=== PATIENT | male | born 1960 | race Caucasian/White ===

== ENCOUNTER → 2016-08-14 | Outpatient (CLI) | payer MEDICARE ==
[2016-08-14 17:25] LABS: ALBUMIN 3.9 GM/DL (3.2-5.2); ALBUMIN/GLOBULIN RATIO 1.34 (1.00-1.93); ALKALINE PHOSPHATASE 91 U/L (45-117); ALT/SGPT 41 U/L (12-78); ANION GAP 7 MEQ/L (8-16); AST/SGOT 23 U/L (15-37); BILIRUBIN,TOTAL 0.6 MG/DL (0.2-1.0); BLOOD UREA NITROGEN 13 MG/DL (7-18); CALCIUM LEVEL 8.5 MG/DL (8.5-10.1); CARBON DIOXIDE LEVEL 31 MEQ/L (21-32); CHLORIDE LEVEL 102 MEQ/L (98-107); CHOLESTEROL LEVEL 160 MG/DL (<200); CREATININE FOR GFR 0.75 MG/DL (0.70-1.30); GLOMERULAR FILTRATION RATE > 60.0 (>56); GLUCOSE, FASTING 92 MG/DL (70-105); POTASSIUM SERUM 4.5 MEQ/L (3.5-5.1); SODIUM LEVEL 140 MEQ/L (136-145); TOTAL PROTEIN 6.8 GM/DL (6.4-8.2); TRIGLYCERIDES LEVEL 165 MG/DL (<150)
== END ==
LOC: M CLY 09:53
PROVIDERS: ATTEND Family Medicine
DX: I10 Essential (primary) hypertension (principal); E78.5 Hyperlipidemia, unspecified; M51.9 Unspecified thoracic, thoracolumbar and lumbosacral intervertebral disc disorder; M54.12 Radiculopathy, cervical region

== ENCOUNTER → 2016-08-14 | Outpatient (CLI) | payer MEDICARE ==
--- NOTE | 2016-08-14 12:27 | REP ---
Clinical: Radiculopathy and paresthesia. Technique: AP, lateral, flexion/extension, swimmer's, open-mouth, and bilateral oblique views. Findings: Advanced multilevel degenerative disc osteophyte complexes are noted throughout the cervical spine. Findings include osteophytosis and plate sclerosis and disc space narrowing along with hypertrophic facet changes. Swimmer's view suggests anterolisthesis at the C5-6 level. Open mouth view demonstrates normal C1-C2 articulation and odontoid process. Impression: Advanced multilevel degenerative changes without acute fracture / compression injury. Cannot exclude anterolisthesis at the C5-6 level. If the patient's symptoms persist MRI may be warranted.
== END ==
LOC: M CLY 11:05
PROVIDERS: ATTEND Family Medicine
DX: M54.12 Radiculopathy, cervical region (principal); M51.9 Unspecified thoracic, thoracolumbar and lumbosacral intervertebral disc disorder; E78.5 Hyperlipidemia, unspecified
CPT/HCPCS: 72050; 80053; 80061; 84443; 93005; G0463

== ENCOUNTER → 2016-09-24 | Outpatient (CLI) | payer MEDICARE ==
[~2016-09-24] VITALS: Ht 185.4 cm; Wt 130.6 kg
[~2016-09-24] MED LIST: LISI-538 PO; NS 1,000 ML IV SCH; PROPOFOL 200 MG/20 ML VIAL As Ordered ONE
--- NOTE | 2016-09-24 15:14 | ROOR ---
Patient Name: Robert Myers Procedure Date: 09/24/2016 2:53 PM Date of : 1960 Age: 56 Room: [facility] Gender: Male Note Status: Finalized Procedure: Colonoscopy Indications: Screening for colorectal malignant neoplasm Providers: Zhou CHASE MD Referring MD: Orion Andujar MD Requesting Provider: Medicines: Monitored Anesthesia Care Complications: No immediate complications. Procedure: Pre-Anesthesia Assessment: - The heart rate, respiratory rate, oxygen saturations, blood pressure, adequacy of pulmonary ventilation, and response to care were monitored throughout the procedure. The Colonoscope was introduced through the anus and advanced to the cecum, identified by appendiceal orifice and ileocecal valve. The colonoscopy was performed without difficulty. The patient tolerated the procedure well. The quality of the bowel preparation was fair. Findings: The perianal and digital rectal examinations were normal. (EXAM: Complete, PREP: Suboptimal) Three sessile polyps were found in the sigmoid colon. The polyps were diminutive in size. These polyps were removed with a cold snare. Resection and retrieval were complete. The exam was otherwise without abnormality. Impression: - (EXAM: Complete, PREP: Suboptimal) - Three diminutive polyps in the sigmoid colon, removed with a cold snare. Resected and retrieved. - The examination was otherwise normal. Recommendation: - Repeat colonoscopy in 1 year because the bowel preparation was suboptimal. Zhou Chase MD Zhou CHASE MD 09/24/2016 3:14:05 PM This report has been signed electronically. Number of Addenda: 0 Note Initiated On: 09/24/2016 2:53 PM Estimated Blood Loss: Estimated blood loss: none.
[2016-09-24 15:35] VITALS: BP 152/95
== END | disposition home or self-care (01) ==
LOC: M OPP 11:47
PROVIDERS: ATTEND Internal Medicine Gastroenterology
DX: Z12.11 Encounter for screening for malignant neoplasm of colon (principal); D12.5 Benign neoplasm of sigmoid colon; I10 Essential (primary) hypertension; M54.9 Dorsalgia, unspecified; G47.30 Sleep apnea, unspecified; Z88.8 Allergy status to other drugs, medicaments and biological substances; Z79.899 Other long term (current) drug therapy; Z80.3 Family history of malignant neoplasm of breast; Z80.41 Family history of malignant neoplasm of ovary

== ENCOUNTER → 2016-11-20 | Outpatient (CLI) | payer MEDICARE, OTHER ==
[~2016-11-20] MED LIST changes: -NS 1,000 ML IV SCH; -PROPOFOL 200 MG/20 ML VIAL As Ordered ONE
--- NOTE | 2016-12-03 00:54 | ECWPNPC ---
PATIENT NAME: CYRIL RUFF : 1960 GENDER: MALE VISIT DATE: 11/20/2016 DISCHARGE DATE: 11/20/16 1446 VISIT LOCKED DATE TIME: PHYSICIAN: ROBERT STANTON PHYSICIAN PAGER NO: [phone] RESOURCE: ROBERT STANTON REASON FOR APPOINTMENT 1. LOW BACK PAIN HISTORY OF PRESENT ILLNESS NEW PATIENT CONSULT: WHEN DID YOUR PAIN FIRST START? . BRIEFLY DESCRIBE HOW YOUR PAIN STARTED? . HOW DOES YOUR PAIN CHANGE WITH TIME? . DOES YOUR PAIN AWAKEN YOU FROM SLEEP? . HOW MANY HOURS OF SLEEP DO YOU NORMALLY GET? . ANY DIAGNOSTIC TESTING? . FACILITY WHERE TESTS WERE DONE? ____. PAIN TREATMENT TREATMENT YES CANCER HAVE YOU EVER HAD ANY TYPE OF CANCER?NO NO. 56 YEAR OLD MALE PATIENT WITH HISTORY OF CHRONIC LOW BACK PAIN. PATIENT DESCRIBES THE PAIN ACHING AND SHARP WITH THE PAIN COMING AND GOING WITH A CURRENT PAIN SCORE OF 2-3/10. 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 SINCE THE ACCIDENT THE PATIENT HAS HAD TWO BACK SURGERIES. PATIENT REPORTS THAT PHYSICAL THERAPY PHYSICAL THERAPY DID NOT AID THE PATIENT IN PAIN RELIEF. CURRENTLY THE PATIENT IS NOT USING ANY MEDICATION FOR PAIN MANAGEMENT AT THIS TIME. PATIENT REPORTS BEING ALLERGIC TO STEROIDS. PATIENT DENIES UNEXPLAINABLE WEIGHT LOSS, FEVER, CHILLS, NEW CHANGES ON HIS URINARY OR BOWEL CONTROL. PAIN SCREENING: PATIENT HAS A COMPLAINT OF ACUTE OR CHRONIC PAIN :YES FALL RISK SCREENING: SCREENING :NO FALLS IN THE PAST YEAR PHILLIPS INVENTORY: QUESTIONNAIRE ASSESSEDTBD SCORE VALUE CALCULATED TBD CURRENT MEDICATIONS TAKING ASPIR-81 81 MG TABLET DELAYED RELEASE 1 TABLET ORALLY ONCE A DAY TAKING LISINOPRIL 20 20 MG TABLET 1 TAB ORALLY ONCE DAILY TAKING PHENTERMINE HCL 15 MG CAPSULE 1 CAPSULE ORALLY ONCE A DAY, NOTES: PER DR. HERR TAKING TOPIRAMATE 25 MG TABLET 1 TABLET ORALLY TWICE A DAY, NOTES: PER DR. HERR MEDICATION LIST REVIEWED AND RECONCILED WITH THE PATIENT PAST MEDICAL HISTORY SLEEP APNEA DEGENERATIVE SPINE HIGH BLOOD PRESSURE OBESITY: HIGH 320 ALLERGIES STERIODS FOR INJECTION: ANAPHYLAXIS: ALLERGY SURGICAL HISTORY BACK SURGERY 1999 SHOULDER SURGERY 1988 4 TITANIUM RODS PUT IN BACK-16 BOLTS- 2009 4 TEETH PULLED BY ORAL SURGERY 2013FEBRUARY 10 FAMILY HISTORY FATHER: DIABETES, HIGH BLOOD PRESSURE MOTHER: HIGH BLOOD PRESSURE,OVARIAN CANCER,BREAST CANCER ,BRAIN TUMOR REMOVED THIS WINTER 2015 SOCIAL HISTORY GENERAL: TOBACCO USE ARE YOU A:NONSMOKER ALCOHOL SCREENING POINTS1 INTERPRETATIONNEGATIVE RECREATIONAL DRUG USE DRUG USE?NO CAFFEINE CAFFEINE USE?YES HOW OFTEN AND HOW MUCH? 6-8 CUPS PER DAY OCCUPATION: [employer]. DIET: REGULAR. EXERCISE: DAILY, WALKS. MARITAL STATUS: .. OTHERS AT HOME: FATHER, MOTHER. DRUZE [id number] [employer] LANG[employer]AGE LANGUAGES SPOKEN:MAORI EDUCATION LEVEL OF EDUCATION:COLLEGE LEARNING BARRIERS / SPECIAL NEEDS BARRIERS TO LEARNING?NO LEARNING PREFERENCES?NO PAIN CLINIC PFS, CLERGY, PUBLIC HEALTH REFERRALS PFS REFERRAL NEEDED?NO CLERGY REFERRAL NEEDED?NO PUBLIC HEALTH REFERRAL NEEDED?NO WAS THE PROVIDER NOTIFIED OF ANY PERTINENT INFO?NO PATIENT: ____. ADVANCE DIRECTIVES HEALTH CARE PROXY?NO WOULD YOU LIKE MORE INFORMATION?NO DO YOU HAVE A DNR?NO WOULD YOU LIKE MORE INFORMATION?NO LIVING WILL?NO WOULD YOU LIKE MORE INFORMATION?NO POWER OF SEXER?NO WOULD YOU LIKE MORE INFORMATION?NO SOCIAL HISTORY ____. KIRILL TONG. HOSPITALIZATION/MAJOR DIAGNOSTIC PROCEDURE NO HOSPITALIZATION HISTORY. REVIEW OF SYSTEMS CONSTITUTIONAL: ANY CHANGE IN YOUR MEDICAL CONDITION? NO . CHILLS NO . FEVER NO . INFECTION: DO YOU HAVE NEW INFECTIONS? NO . DO YOU HAVE HISTORY OF MRSA? NO . MUSCULOSKELETAL: ANY NEW PATTERNS OF PAIN OR NUMBNESS? NO . SYTEMIC LUPUS NO . GASTROENTEROLOGY: ANY NEW CHANGE IN BOWEL CONTROL? NO . BARRETTS ESOPHAGUS NO . CIRRHOSIS NO . HEPATITIS NO . LIVER FAILURE NO . ACID REFLUX NO . UNEXPLAINED WEIGHT LOSS NO . GENITOURINARY: ANY NEW CHANGE IN BLADDER CONTROL? NO . IS THERE A CHANCE YOU COULD BE ? NO . HEMATOLOGY/LYMPH: DO YOU TAKE ANY BLOOD THINNERS? (FOR EXAMPLE- COUMADIN, PLAVIX, AGGRENOX, PLATEL, PRADAXA, OR XARELTO) NO . WHEN WAS YOUR LAST DOSE? DATE: TIME: . LOW PLATELET COUNT NO . SICKLE CELL DISEASE NO . VON WILLIEBRANDS NO . FACTOR V LEIDEN NO . THALLASEMIA NO . ANEMIA NO . EASY BRUISING NO . NEUROLOGY: HAVE YOU FALLEN IN THE PAST 6 MONTHS? NO . ANY NEW EXTREMITY NUMBNESS OR WEAKNESS? NO . HEAD INJURY NO . DEMENTIA NO . CEREBRAL PALSY NO . MULTIPLE SCLEROSIS NO . DIZZINESS NO . HEADACHE NO . STROKES NO . VERTIGO NO . CARDIOLOGY: DO YOU HAVE A PACEMAKER OR DEFIBRILLATOR? NO . ANGINA NO . HEART ATTACK NO . HEART SURGERY NO . CONGESTIVE HEART FAILURE/FLUID OVERLOAD NO . CHEST PAIN NO . HIGH BLOOD PRESSURE ON MEDICATION(S) . IRREGULAR HEART BEAT NO . RESPIRATORY: HAVE YOU BEEN SICK IN THE PAST WEEK? NO . FEVER NO . FLU LIKE SYMPTOMS? NO . CPAP NO . BYPAP NO . ASTHMA NO . EMPHYSEMA NO . CHRONIC LUNG DISEASES NO . SHORTNESS OF BREATH ON EXERTION NO . DO YOU USE ANY TYPE OF TOBACCO (SMOKE, SMOKELESS, CHEW)? NO . COUGH NO . SNORING YES,USES CPAP . INTEGUMENTARY: DO YOU HAVE ANY RASHES OR OPEN SORES? NO . ALLERGIC/IMMUNO: ARE YOU ALLERGIC TO SHELLFISH OR IV DYE? NO . ANY NEW ALLERGIES? NO . PSYCHIATRIC: DO YOU HAVE THOUGHTS OF HURTING YOURSELF OR SOMEONE ELSE? NO . ARE YOU ABUSED, NEGLECTED, OR IN AN UNSAFE ENVIRONMENT? NO . ENDOCRINOLOGY: ARE YOU DIABETIC? NO . THYROID DISORDER NO . OTHER: DO YOU NEED ANY PRESCRIPTIONS? NO . IF YES, PLEASE LIST: ____ . ANY NEW PROBLEMS WITH YOUR MEDICATIONS? NO . WHEN DID YOU LAST EAT? ____ . WHEN DID YOU LAST DRINK? ____ . WHAT DID YOU LAST DRINK? ____ . NAME OF PERSON DRIVING YOU HOME? ____ . DO YOU HAVE ANY OTHER QUESTIONS OR CONCERNS NO . REVIEWED BY: PROVIDER: ROBERT STANTON MD . VITAL SIGNS WT 301.8 LBS, HT 5'10", BMI 43.30 INDEX, BP 147/70 MM HG, HR 74 /MIN, RR 16 /MIN, TEMP 97.7 F, OXYGEN SAT % 96%, NA INITIALS TL 1257, REVIEWED BY: VD. EXAMINATION : PATIENT IS ALERT O X 3 AND COOPERATIVE. TENDERNESS IN HIS LOWER BACK AND PARASPINAL MUSLCE GROUP. PATIENT ABLE TO FLEX THE BACK 35 DEGREES AND EXTEND 0 DEGREES. LIMPING FROM THE LEFT LEG. LEFT LEG WEAKER THEN THE RIGHT AT EXTENSION AND FLEXION. PENDING LUMBAR MRI. ASSESSMENTS MYALGIA - M79.1 (PRIMARY) POSTLAMINECTOMY SYNDROME, NOT ELSEWHERE CLASSIFIED - M96.1 SPONDYLOSIS WITHOUT MYELOPATHY OR RADICULOPATHY, LUMBAR REGION - M47.816 SPONDYLOSIS WITHOUT MYELOPATHY OR RADICULOPATHY, LUMBOSACRAL REGION - M47.817 TREATMENT MYALGIA NOTES: WE DISCUSSED SEVERAL ISSUES WITH MR. RUFF'S PAIN MANAGEMENT CASE. AT THIS TIME THE PATIENT STATES THAT HE DOES NOT WANT MEDICATION FOR PAIN HE CAN MANAGEMENT WITH ASPIRIN. WE DISCUSSED POSSIBLE INJECTIONS FOR THE PATIENT DUE TO HIM BEING ALLERGIC TO STEROIDS THE OPTIONS ARE LIMITED. WE DISCUSSED DOING A RADIOFREQUENCY. THE PATIENT IS AWARE THAT PRIOR HE WILL NEED TO HAVE TWO DIAGNOSTIC TESTS DONE WITH ADEQUATE RESULTS TO MOVE FORWARD WITH THE RADIOFREQUENCY. PATIENT REPORTS UNDERSTANDING OF THIS AND WILL BE BOOK FOR A DIAGNOSTIC TEST AFTER APPROVAL. INSTRUCTIONS WERE GIVEN, QUESTIONS WERE ANSWERED, PATIENT REPORTS UNDERSTANDING AND AGREES WITH THE PLAN. I, DHAVAL GOLDEN, DOCUMENTED THE ABOVE INFORMATION ACTING A SCRIBE FOR DR. STANTON. I HAVE REVIEWED THE ABOVE DOCUMENT, WRITTEN BY DHAVAL BLAKEIBBranden AND I VERIFY THAT IT IS ACCURATE. DEAR DR. CAMP:THANK YOU FOR YOUR KIND REFERRAL OF MR. RUFF. YOU WANT TO DISCUSS HER CASE WITH ME PLEASE CALL ME AT THE PAIN CENTER AT [phone]. SINCERELY,ROBERT STANTON, [facility]. PROCEDURES PN WORKMANS' COMP OPINION IN YOUR OPINION, WAS THE INCIDENT THAT THE PATIENT DESCRIBED THE COMPETENT MEDICAL CAUSE OF THIS INJURY/ILLNESS? YES ARE THE PATIENT'S COMPLAINTS CONSISTENT WITH HIS/HER HISTORY OF THE INJURY/ILLNESS? YES IS THE PATIENT'S HISTORY OF THE INJURY/ILLNESS CONSISTENT WITH YOUR OBJECTIVE FINDING? YES WHAT IS THE PERCENTAGE OF TEMPORARY IMPAIRMENT? MODERATE TO MARKED = 66.7% IS THE PATIENT WORKING? NO DOCTOR ON SITE: ROBERT MELENDEZ MD PROCEDURE CODES FA211 ESTABILISHED PATIENT [facility] FACILITY CHARGE G8427 DOC MEDS VERIFIED W/PT OR RE G8730 PAIN ASSESS POS TOOL F/U PLAN DOC DISPOSITION & COMMUNICATION FOLLOW UP LFBD AFTER APPROVAL ELECTRONICALLY SIGNED BY ROBERT STANTNO MD ON 12/02/2016 AT 07:48 PM EDT DISCLAIMER : THIS IS A VISIT SUMMARY EXTRACTED FROM THE [email or web address] CHART. IT IS NOT A COPY OF THE [email or web address] PROGRESS NOTE. STANISLAV
== END ==
LOC: M PAIN 12:40
PROVIDERS: ATTEND Anesthesiology
DX: M96.1 Postlaminectomy syndrome, not elsewhere classified (principal); M79.1 Myalgia; M47.816 Spondylosis without myelopathy or radiculopathy, lumbar region; M47.817 Spondylosis without myelopathy or radiculopathy, lumbosacral region; G47.30 Sleep apnea, unspecified; I10 Essential (primary) hypertension; E66.9 Obesity, unspecified; Z68.41 Body mass index [BMI] 40.0-44.9, adult; Z88.8 Allergy status to other drugs, medicaments and biological substances; Z79.82 Long term (current) use of aspirin; Z79.899 Other long term (current) drug therapy

== ENCOUNTER → 2017-03-21 | Outpatient (CLI) | payer OTHER, MEDICARE ==
--- NOTE | 2017-04-02 01:12 | ECWPNPC ---
PATIENT NAME: CYRIL RUFF : 1960 GENDER: MALE VISIT DATE: 03/21/2017 DISCHARGE DATE: 03/21/17 1430 VISIT LOCKED DATE TIME: PHYSICIAN: ROBERT STANTON PHYSICIAN PAGER NO: [phone] RESOURCE: ROBERT STANTON REASON FOR APPOINTMENT 1. W/C LBP HISTORY OF PRESENT ILLNESS HISTORY OF PRESENT ILLNESS: PAIN THE PATIENT DESCRIBES THE PAIN... 56 YEAR OLD MALE PATIENT WITH HISTORY OF CHRONIC LOW BACK PAIN. PATIENT DESCRIBES THE PAIN ACHING AND SHARP WITH THE PAIN COMING AND GOING WITH A CURRENT PAIN SCORE OF 02-3/10. 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 SINCE THE ACCIDENT THE PATIENT HAS HAD TWO BACK SURGERIES. PATIENT REPORTS THAT PHYSICAL THERAPY PHYSICAL THERAPY DID NOT AID THE PATIENT IN PAIN RELIEF. CURRENTLY THE PATIENT IS NOT USING ANY MEDICATION FOR PAIN MANAGEMENT AT THIS TIME. PATIENT REPORTS BEING ALLERGIC TO STEROIDS. PATIENT RECENTLY HAD GASTRIC BYPASS AND HAS LOST OVER 50 POUNDS WHICH HE STATES HAS AIDED IN RELIEF FROM THE BACK PAIN. MR. RUFF REPORTS WALKING DAILY TO STAY LIMB. PATIENT DENIES UNEXPLAINABLE WEIGHT LOSS, FEVER, CHILLS, NEW CHANGES ON HIS URINARY OR BOWEL CONTROL. FALL RISK SCREENING: SCREENING :NO FALLS IN THE PAST YEAR CURRENT MEDICATIONS NOT-TAKING PHENTERMINE HCL 15 MG CAPSULE 1 CAPSULE ORALLY ONCE A DAY, NOTES: PER DR. HERR NOT-TAKING TOPIRAMATE 25 MG TABLET 1 TABLET ORALLY TWICE A DAY, NOTES: PER DR. HERR UNKNOWN ASPIR-81 81 MG TABLET DELAYED RELEASE 1 TABLET ORALLY ONCE A DAY UNKNOWN LISINOPRIL 20 20 MG TABLET 1 TAB ORALLY ONCE DAILY UNKNOWN MULTI VITAMIN DAILY - TABLET 2 TABS ORALLY ONCE A DAY UNKNOWN CALTRATE 600+D 600-400 MG-UNIT TABLET 1 TABLET WITH FOOD ORALLY DAILY UNKNOWN VITAMIN B12 1000 MCG TABLET EXTENDED RELEASE 1 TABLET ORALLY BID MEDICATION LIST REVIEWED AND RECONCILED WITH THE PATIENT PAST MEDICAL HISTORY SLEEP APNEA DEGENERATIVE SPINE HIGH BLOOD PRESSURE OBESITY: HIGH 320 ALLERGIES STERIODS FOR INJECTION: ANAPHYLAXIS: ALLERGY SURGICAL HISTORY BACK SURGERY 1999 SHOULDER SURGERY 1988 4 TITANIUM RODS PUT IN BACK-16 BOLTS- 2008 4 TEETH PULLED BY ORAL SURGERY 2013FEBRUARY 10 GASTRIC BYPASS 2016 REVIEW OF SYSTEMS REVIEWED BY: PROVIDER: . CONSTITUTIONAL: ANY CHANGE IN YOUR MEDICAL CONDITION? NO . CHILLS NO . FEVER NO . INFECTION: DO YOU HAVE NEW INFECTIONS? NO . DO YOU HAVE HISTORY OF MRSA? NO . MUSCULOSKELETAL: ANY NEW PATTERNS OF PAIN OR NUMBNESS? NO . GASTROENTEROLOGY: ANY NEW CHANGE IN BOWEL CONTROL? NO . GENITOURINARY: ANY NEW CHANGE IN BLADDER CONTROL? NO . IS THERE A CHANCE YOU COULD BE ? NO . HEMATOLOGY/LYMPH: DO YOU TAKE ANY BLOOD THINNERS? (FOR EXAMPLE- COUMADIN, PLAVIX, AGGRENOX, PLATEL, PRADAXA, OR XARELTO) NO . WHEN WAS YOUR LAST DOSE? DATE: TIME: . NEUROLOGY: HAVE YOU FALLEN IN THE PAST 6 MONTHS? NO . ANY NEW EXTREMITY NUMBNESS OR WEAKNESS? NO . CARDIOLOGY: DO YOU HAVE A PACEMAKER OR DEFIBRILLATOR? NO . RESPIRATORY: HAVE YOU BEEN SICK IN THE PAST WEEK? NO . FEVER NO . FLU LIKE SYMPTOMS? NO . COUGH NO . INTEGUMENTARY: DO YOU HAVE ANY RASHES OR OPEN SORES? NO . ALLERGIC/IMMUNO: ARE YOU ALLERGIC TO SHELLFISH OR IV DYE? NO . ANY NEW ALLERGIES? NO . PSYCHIATRIC: DO YOU HAVE THOUGHTS OF HURTING YOURSELF OR SOMEONE ELSE? NO . ARE YOU ABUSED, NEGLECTED, OR IN AN UNSAFE ENVIRONMENT? NO . ENDOCRINOLOGY: ARE YOU DIABETIC? NO . OTHER: DO YOU NEED ANY PRESCRIPTIONS? NO . IF YES, PLEASE LIST: ____ . ANY NEW PROBLEMS WITH YOUR MEDICATIONS? NO . WHEN DID YOU LAST EAT? ____ . WHEN DID YOU LAST DRINK? ____ . WHAT DID YOU LAST DRINK? ____ . NAME OF PERSON DRIVING YOU HOME? ____ . DO YOU HAVE ANY OTHER QUESTIONS OR CONCERNS NO . VITAL SIGNS WT 273 LBS, HT 5'10", BMI 39.17 INDEX, BP 148/62 MM HG, HR 77 /MIN, RR 18 /MIN, TEMP 98.2 F, OXYGEN SAT % 97, SAFE IN ENV? (Y/N) YES, REVIEWED BY: KG. EXAMINATION : PATIENT IS ALERT O X 3 AND COOPERATIVE. TENDERNESS IN HIS LOWER BACK AND PARASPINAL MUSCLE GROUP. PATIENT ABLE TO FLEX THE BACK 35 DEGREES AND EXTEND 0 DEGREES. BANDS OF TISSUE, RESTRICTION OF MOVEMENT, AND PRESENCE OF TRIGGER POINTS IN THE LOWER BACK AREA. LIMPING FROM THE LEFT LEG. LEFT LEG WEAKER THEN THE RIGHT AT EXTENSION AND FLEXION. ASSESSMENTS POSTLAMINECTOMY SYNDROME, NOT ELSEWHERE CLASSIFIED - M96.1 (PRIMARY) SPONDYLOSIS OF LUMBAR REGION WITHOUT MYELOPATHY OR RADICULOPATHY - M47.816 SPONDYLOSIS OF LUMBOSACRAL REGION WITHOUT MYELOPATHY OR RADICULOPATHY - M47.817 TREATMENT POSTLAMINECTOMY SYNDROME, NOT ELSEWHERE CLASSIFIED NOTES: WE DISCUSSED SEVERAL ISSUES WITH MR. RUFF'S PAIN MANAGEMENT CASE. AT THIS TIME THE PATIENT WILL CONTINUE TO USE OVER THE COUNTER MEDICATION IF NEEDED. WE DISCUSSED POSSIBLE INJECTIONS THAT MAY AID THE PATIENT IN PAIN RELIEF. DUE TO THE BANDS OF TISSUE AND RESTRICTION OF MOVEMENT I WOULD LIKE TO PROCEED WITH A TRIGGER POINT INJECTION. WE DISCUSSED THE RISKS, BENENFITS, AND ALTNERATIVES OF THE INJECTION AND THE PATIENT WOULD LIKE TO PROCEED. INSTRUCTIONS WERE GIVEN, QUESTIONS WERE ANSWERED, PATIENT REPORTS UNDERSTANDING AND AGREES WITH THE PLAN. I, DHAVAL GOLDEN, DOCUMENTED THE ABOVE INFORMATION ACTING A SCRIBE FOR DR. STANTON. I HAVE REVIEWED THE ABOVE DOCUMENT, WRITTEN BY DHAVAL BANI AND I VERIFY THAT IT IS ACCURATE. OTHERS NOTES: TRIGGER POINT INJECTION MATERIAL WAS PRINTED. PROCEDURES PN WORKMANS' COMP OPINION IN YOUR OPINION, WAS THE INCIDENT THAT THE PATIENT DESCRIBED THE COMPETENT MEDICAL CAUSE OF THIS INJURY/ILLNESS? YES ARE THE PATIENT'S COMPLAINTS CONSISTENT WITH HIS/HER HISTORY OF THE INJURY/ILLNESS? YES IS THE PATIENT'S HISTORY OF THE INJURY/ILLNESS CONSISTENT WITH YOUR OBJECTIVE FINDING? YES WHAT IS THE PERCENTAGE OF TEMPORARY IMPAIRMENT? MODERATE TO MARKED = 66.7% IS THE PATIENT WORKING? NO DOCTOR ON SITE: ROBERT MELENDEZ MD PROCEDURE CODES FA211 ESTABILISHED PATIENT [facility] FACILITY CHARGE G8427 DOC MEDS VERIFIED W/PT OR RE G8730 PAIN ASSESS POS TOOL F/U PLAN DOC DISPOSITION & COMMUNICATION FOLLOW UP TPI AFTER APPROVAL ELECTRONICALLY SIGNED BY ROBERT STANTON MD ON 03/31/2017 AT 04:47 PM EDT DISCLAIMER : THIS IS A VISIT SUMMARY EXTRACTED FROM THE [employer] CHART. IT IS NOT A COPY OF THE [employer] PROGRESS NOTE. STANISLAV
== END ==
LOC: M PAIN 14:00
PROVIDERS: ATTEND Anesthesiology
DX: M96.1 Postlaminectomy syndrome, not elsewhere classified (principal); M47.816 Spondylosis without myelopathy or radiculopathy, lumbar region; M47.817 Spondylosis without myelopathy or radiculopathy, lumbosacral region; G47.30 Sleep apnea, unspecified; E78.5 Hyperlipidemia, unspecified; I10 Essential (primary) hypertension; E66.01 Morbid (severe) obesity due to excess calories; Z68.39 Body mass index [BMI] 39.0-39.9, adult; Z88.8 Allergy status to other drugs, medicaments and biological substances; Z79.899 Other long term (current) drug therapy

== ENCOUNTER → 2017-05-27 | Outpatient (CLI) | payer OTHER, MEDICARE ==
--- NOTE | 2017-06-08 23:55 | ECWPNPC ---
PATIENT NAME: CYRIL RUFF : 1960 GENDER: MALE VISIT DATE: 05/27/2017 DISCHARGE DATE: 05/27/17 1215 VISIT LOCKED DATE TIME: PHYSICIAN: ROBERT STANTON PHYSICIAN PAGER NO: [phone] RESOURCE: ROBERT STANTON REASON FOR APPOINTMENT 1. LOW BACK PAIN HISTORY OF PRESENT ILLNESS HISTORY OF PRESENT ILLNESS: PAIN THE PATIENT DESCRIBES THE PAIN... 56 YEAR OLD MALE PATIENT WITH HISTORY OF CHRONIC LOW BACK PAIN. PATIENT DESCRIBES THE PAIN ACHING AND SHARP WITH THE PAIN COMING AND GOING WITH A CURRENT PAIN SCORE OF 02-3/10. 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 SINCE THE ACCIDENT THE PATIENT HAS HAD TWO BACK SURGERIES ONE IN 2000 AND ONE IN 1988. PATIENT REPORTS THAT PHYSICAL THERAPY PHYSICAL THERAPY DID NOT AID THE PATIENT IN PAIN RELIEF. CURRENTLY THE PATIENT IS NOT USING ANY MEDICATION FOR PAIN MANAGEMENT AT THIS TIME. PATIENT REPORTS BEING ALLERGIC TO STEROIDS. PATIENT STATES THAT HE HAS BEEN IN SEVERE PAIN THE PAST YEAR EXCEPT FOR THE PAST MONTH WHERE HE ONLY HAD 4-5 DAYS OF SEVERE PAIN. MR. RUFF REPORTS WALKING DAILY TO STAY LIMBER. PATIENT DENIES UNEXPLAINABLE WEIGHT LOSS, FEVER, CHILLS, NEW CHANGES ON HIS URINARY OR BOWEL CONTROL. FALL RISK SCREENING: SCREENING :NO FALLS IN THE PAST YEAR CURRENT MEDICATIONS TAKING ASPIR-81 81 MG TABLET DELAYED RELEASE 1 TABLET ORALLY ONCE A DAY TAKING MULTI VITAMIN DAILY - TABLET 2 TABS ORALLY ONCE A DAY TAKING CALTRATE 600+D 600-400 MG-UNIT TABLET 1 TABLET WITH FOOD ORALLY DAILY TAKING VITAMIN B12 1000 MCG TABLET EXTENDED RELEASE 1 TABLET ORALLY BID NOT-TAKING PHENTERMINE HCL 15 MG CAPSULE 1 CAPSULE ORALLY ONCE A DAY, NOTES: PER DR. HERR NOT-TAKING TOPIRAMATE 25 MG TABLET 1 TABLET ORALLY TWICE A DAY, NOTES: PER DR. HERR NOT-TAKING LISINOPRIL 20 20 MG TABLET 1 TAB ORALLY ONCE DAILY MEDICATION LIST REVIEWED AND RECONCILED WITH THE PATIENT PAST MEDICAL HISTORY SLEEP APNEA DEGENERATIVE SPINE HIGH BLOOD PRESSURE OBESITY: HIGH 320 ALLERGIES STERIODS FOR INJECTION: ANAPHYLAXIS: ALLERGY SURGICAL HISTORY BACK SURGERY 1999 SHOULDER SURGERY 1988 4 TITANIUM RODS PUT IN BACK-16 BOLTS- 2008 4 TEETH PULLED BY ORAL SURGERY 2013FEBRUARY 10 GASTRIC BYPASS 2016 SOCIAL HISTORY GENERAL: TOBACCO USE ARE YOU A:NONSMOKER NEVER SMOKER QUIT 2007 ADDITIONAL FINDINGS: TOBACCO USER NO ADDITIONAL FINDINGS: TOBACCO NON-USERCURRENT NON-SMOKER VAPORNO E-CIGARETTENO LUNG CANCER SCREENING SMOKING STATUS:FORMER SMOKER IS THE PATIENT BETWEEN THE AGE OF 54 AND 76?YES HAVE YOU QUIT SMOKING WITHIN THE PAST 15 YEARS?YES HAS THE PATIENT EVER BEEN DIAGNOSED WITH LUNG CANCER?NO BMI CARE GOAL FOLLOW-UP ABOVE NORMAL BMI FOLLOW-UPDIETARY MANAGEMENT EDUCATION, GUIDANCE, AND COUNSELING ALCOHOL SCREENING DID YOU HAVE A DRINK CONTAINING ALCOHOL IN THE PAST YEAR?YES HOW OFTEN DID YOU HAVE SIX OR MORE DRINKS ON ONE OCCASION IN THE PAST YEAR?NEVER (0 POINTS) HOW MANY DRINKS DID YOU HAVE ON A TYPICAL DAY WHEN YOU WERE DRINKING IN THE PAST YEAR?1 OR 2 (0 POINTS) HOW OFTEN DID YOU HAVE A DRINK CONTAINING ALCOHOL IN THE PAST YEAR?MONTHLY OR LESS (1 POINT) POINTS1 INTERPRETATIONNEGATIVE RECREATIONAL DRUG USE DRUG USE?NO CAFFEINE CAFFEINE USE?NO SEXUAL HX HAD SEX IN THE LAST 12 MONTHS (VAGINAL, ORAL, OR ANAL)?YES WITHWOMEN ONLY USE PROTECTION?YES HOW OFTEN?ALL OF THE TIME HAVE YOU EVER HAD AN STD?NO HIV / HEP-C SCREENING HIV TEST OFFERED TO PATIENT:YES DATE OFFERED:02/12/2017 TEST ACCEPTED:NO HEP-C TEST OFFERED TO PATIENT:YES DATE OFFERED:02/12/2017 REASON:PATIENT DECLINED TEST ACCEPTED:NO REASON:PATIENT DECLINED OCCUPATION: [employer]. DIET: REGULAR. EXERCISE: DAILY, WALKS. MARITAL STATUS: .. OTHERS AT HOME: FATHER, MOTHER. 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 [id number] ANABAPTISM LANGUAGE LANGUAGES SPOKEN:BERMUDIAN EDUCATION LEVEL OF EDUCATION:COLLEGE LEARNING BARRIERS / SPECIAL NEEDS CHANGE FROM LAST VISIT?NO 02/12/2017 BARRIERS TO LEARNING?NO HEARING IMPAIRED?NO VISION IMPAIRED?YES CHEATERS COGNITIVELY IMPAIRED?NO READINESS TO LEARN?YES LEARNING PREFERENCES?NO LEARNING CAPABILITIES PRESENT?YES EMOTIONAL BARRIERS?NO SPECIAL DEVICES?NO MOVER HELPER NEEDED?NO PAIN CLINIC PFS, CLERGY, PUBLIC HEALTH REFERRALS PFS REFERRAL NEEDED?NO CLERGY REFERRAL NEEDED?NO PUBLIC HEALTH REFERRAL NEEDED?NO WAS THE PROVIDER NOTIFIED OF ANY PERTINENT INFO?NO HAS THE PATIENT BEEN EDUCATED REGARDING HIS/HER PLAN OF CARE?YES HAS THE PATIENT BEEN EDUCATED REGARDING PAIN, THE RISK FOR PAIN, THE IMPORTANCE OF EFFECTIVE PAIN MANAGEMENT, AND THE PAIN ASSESSMENT PROCESS?YES PATIENT: ____. ADVANCE DIRECTIVES HEALTH CARE PROXY?YES NAME OF HCPFILL OUT FREE FORM NOTES SECTION CYRIL ELZBIETA JOHNSON. /SUZE SOLANO CONTACT # FOR HCPFILL OUT FREE FORM NOTES SECTION [phone]/ [phone] DO YOU HAVE A COPY WITH YOU?NO WILL BRING IN COPY 02/12/2017 POWER OF INSURANCE PLAN SPECIALIST?NO DO YOU HAVE A DNR?NO WOULD YOU LIKE MORE INFORMATION?NO LIVING WILL?NO WOULD YOU LIKE MORE INFORMATION?NO WOULD YOU LIKE MORE INFORMATION?NO SOCIAL HISTORY ____. DOMESTIC VIOLENCE DO YOU FEEL SAFE IN YOUR ENVIRONMENT?YES HOSPITALIZATION/MAJOR DIAGNOSTIC PROCEDURE NO HOSPITALIZATION HISTORY. REVIEW OF SYSTEMS REVIEWED BY: PROVIDER: ROBERT STANTON MD . CONSTITUTIONAL: ANY CHANGE IN YOUR MEDICAL CONDITION? NO . CHILLS NO . FEVER NO . INFECTION: DO YOU HAVE NEW INFECTIONS? NO . DO YOU HAVE HISTORY OF MRSA? NO . MUSCULOSKELETAL: ANY NEW PATTERNS OF PAIN OR NUMBNESS? NO . GASTROENTEROLOGY: ANY NEW CHANGE IN BOWEL CONTROL? NO . GENITOURINARY: ANY NEW CHANGE IN BLADDER CONTROL? NO . IS THERE A CHANCE YOU COULD BE ? NO . HEMATOLOGY/LYMPH: DO YOU TAKE ANY BLOOD THINNERS? (FOR EXAMPLE- COUMADIN, PLAVIX, AGGRENOX, PLATEL, PRADAXA, OR XARELTO) NO . WHEN WAS YOUR LAST DOSE? DATE: TIME: . NEUROLOGY: HAVE YOU FALLEN IN THE PAST 6 MONTHS? NO . ANY NEW EXTREMITY NUMBNESS OR WEAKNESS? NO . CARDIOLOGY: DO YOU HAVE A PACEMAKER OR DEFIBRILLATOR? NO . RESPIRATORY: HAVE YOU BEEN SICK IN THE PAST WEEK? NO . FEVER NO . FLU LIKE SYMPTOMS? NO . COUGH NO . INTEGUMENTARY: DO YOU HAVE ANY RASHES OR OPEN SORES? NO . ALLERGIC/IMMUNO: ARE YOU ALLERGIC TO SHELLFISH OR IV DYE? NO . ANY NEW ALLERGIES? NO . PSYCHIATRIC: DO YOU HAVE THOUGHTS OF HURTING YOURSELF OR SOMEONE ELSE? NO . ARE YOU ABUSED, NEGLECTED, OR IN AN UNSAFE ENVIRONMENT? NO . ENDOCRINOLOGY: ARE YOU DIABETIC? NO . OTHER: DO YOU NEED ANY PRESCRIPTIONS? NO . IF YES, PLEASE LIST: ____ . ANY NEW PROBLEMS WITH YOUR MEDICATIONS? NO . WHEN DID YOU LAST EAT? ____ . WHEN DID YOU LAST DRINK? ____ . WHAT DID YOU LAST DRINK? ____ . NAME OF PERSON DRIVING YOU HOME? ____ . DO YOU HAVE ANY OTHER QUESTIONS OR CONCERNS NO . VITAL SIGNS WT 275.0 LBS, HT 70", BMI 39.45 INDEX, BP 135/72 MM HG, HR 56 /MIN, RR 18 /MIN, TEMP 97.2 F, OXYGEN SAT % 96%, [place]ITIALS TL 0954, REVIEWED BY: ZAC. EXAMINATION : PATIENT IS ALERT O X 3 AND COOPERATIVE. TENDERNESS IN HIS LOWER BACK AND PARASPINAL MUSCLE GROUP. PATIENT ABLE TO FLEX THE BACK 35 DEGREES AND EXTEND 0 DEGREES. BANDS OF TISSUE, RESTRICTION OF MOVEMENT, AND PRESENCE OF TRIGGER POINTS IN THE LOWER BACK AREA. LIMPING FROM THE LEFT LEG. LEFT LEG WEAKER THEN THE RIGHT AT EXTENSION AND FLEXION. ASSESSMENTS POSTLAMINECTOMY SYNDROME, NOT ELSEWHERE CLASSIFIED - M96.1 (PRIMARY) MYALGIA - M79.1 TREATMENT POSTLAMINECTOMY SYNDROME, NOT ELSEWHERE CLASSIFIED NOTES: WE DISCUSSED SEVERAL ISSUES WITH MR. RUFF'S PAIN MANAGEMENT CASE. AT THIS TIME THE PATIENT WILL CONTINUE WITH THE SAME MEDICATION REGIME. I WOULD LIKE THE PATIENT TO START USING EXTRA STRENGTH TYLENOL DUE TO NOT BEING ABLE TO USE NSAID WOULD LIKE TO VIEW THE MRI THAT DR. STEWART HAS RECEIVED FOR THE LOWER BACK BEFORE ORDERING ANOTHER STUDY. AT THIS TIME THE PATIENT IS DOING VERY WELL AND DOES NOT NEED TO MOVE FORWARD WITH INTERVENTIONS AT THIS TIME. HOWEVER, WE DISCUSSED IF THE PATIENT HAS SEVERE PAIN TO MOVE FORWARD WITH TRIGGER POINT INJECTIONS WITHOUT STEROIDS. PATIENT WILL FOLLOW UP IN 2 MONTHS BUT WAS ADVISED TO CALL IF THE PAIN SIGNIFICANTLY INCREASES. INSTRUCTIONS WERE GIVEN, QUESTIONS WERE ANSWERED, PATIENT REPORTS UNDERSTANDING AND AGREES WITH THE PLAN. I, DHAVAL GOLDEN, DOCUMENTED THE ABOVE INFORMATION ACTING A SCRIBE FOR DR. STANTON. I HAVE REVIEWED THE ABOVE DOCUMENT, WRITTEN BY DHAVAL BAIN AND I VERIFY THAT IT IS ACCURATE. PROCEDURES PN WORKMANS' COMP OPINION IN YOUR OPINION, WAS THE INCIDENT THAT THE PATIENT DESCRIBED THE COMPETENT MEDICAL CAUSE OF THIS INJURY/ILLNESS? YES ARE THE PATIENT'S COMPLAINTS CONSISTENT WITH HIS/HER HISTORY OF THE INJURY/ILLNESS? YES IS THE PATIENT'S HISTORY OF THE INJURY/ILLNESS CONSISTENT WITH YOUR OBJECTIVE FINDING? YES WHAT IS THE PERCENTAGE OF TEMPORARY IMPAIRMENT? MODERATE TO MARKED = 66.7% IS THE PATIENT WORKING? NO DOCTOR ON SITE: ROBERT MELENDEZ MD PROCEDURE CODES FA211 ESTABILISHED PATIENT [facility] FACILITY CHARGE G8427 DOC MEDS VERIFIED W/PT OR RE G8730 PAIN ASSESS POS TOOL F/U PLAN DOC DISPOSITION & COMMUNICATION FOLLOW UP 2 MONTHS ELECTRONICALLY SIGNED BY ROBERT STANTON MD ON 06/08/2017 AT 06:24 PM EST DISCLAIMER : THIS IS A VISIT SUMMARY EXTRACTED FROM THE [employer] CHART. IT IS NOT A COPY OF THE [employer] PROGRESS NOTE. STANISLAV
== END ==
LOC: M PAIN 09:45
PROVIDERS: ATTEND Anesthesiology
DX: M96.1 Postlaminectomy syndrome, not elsewhere classified (principal); M79.1 Myalgia; G89.29 Other chronic pain; G47.30 Sleep apnea, unspecified; E66.9 Obesity, unspecified; Z79.82 Long term (current) use of aspirin; R03.0 Elevated blood-pressure reading, without diagnosis of hypertension; Z87.891 Personal history of nicotine dependence; Z88.8 Allergy status to other drugs, medicaments and biological substances; Z68.39 Body mass index [BMI] 39.0-39.9, adult

== ENCOUNTER → 2017-06-19 | Outpatient (REF) | payer MEDICARE ==
[2017-06-19 17:50] LABS: VITAMIN B12 LEVEL 1291 PG/ML (247-911)
[2017-06-19 17:52] LABS: ALBUMIN 4.2 GM/DL (3.2-5.2); ALBUMIN/GLOBULIN RATIO 1.35 (1.00-1.93); ALKALINE PHOSPHATASE 111 U/L (45-117); ALT/SGPT 50 U/L (12-78); ANION GAP 6 MEQ/L (8-16); AST/SGOT 26 U/L (7-37); BILIRUBIN,TOTAL 0.4 MG/DL (0.2-1.0); BLOOD UREA NITROGEN 17 MG/DL (7-18); CALCIUM LEVEL 8.8 MG/DL (8.5-10.1); CARBON DIOXIDE LEVEL 31 MEQ/L (21-32); CHLORIDE LEVEL 103 MEQ/L (98-107); CREATININE FOR GFR 0.62 MG/DL (0.70-1.30); FREE T4 0.82 NG/DL (0.76-1.46); GLOMERULAR FILTRATION RATE > 60.0 (>56); GLUCOSE, FASTING 90 MG/DL (70-105); MAGNESIUM LEVEL 2.2 MG/DL (1.8-2.4); POTASSIUM SERUM 4.8 MEQ/L (3.5-5.1); SODIUM LEVEL 140 MEQ/L (136-145); TOTAL PROTEIN 7.3 GM/DL (6.4-8.2)
[2017-06-19 18:46] LABS: MEAN CORPUSCULAR HEMOGLOBIN 30.6 pg (27.0-33.0); MEAN CORPUSCULAR HGB CONC 32.5 g/dl (32.0-36.5); PLATELET COUNT, AUTOMATED 286 10^3/uL (150-450); RED CELL DISTRIBUTION WIDTH 12.1 % (11.5-14.5)
== END ==
LOC: M SFHCCLAY 09:59
PROVIDERS: ATTEND Family Medicine
DX: G56.03 Carpal tunnel syndrome, bilateral upper limbs (principal); Z98.84 Bariatric surgery status

== ENCOUNTER → 2017-06-19 | Outpatient (REF) | payer MEDICARE ==
[2017-06-19 17:44] LABS: ALBUMIN 4.2 GM/DL (3.2-5.2); ALBUMIN/GLOBULIN RATIO 1.24 (1.00-1.93); ALKALINE PHOSPHATASE 112 U/L (45-117); ALT/SGPT 52 U/L (12-78); ANION GAP 8 MEQ/L (8-16); AST/SGOT 26 U/L (7-37); BILIRUBIN,TOTAL 0.4 MG/DL (0.2-1.0); BLOOD UREA NITROGEN 17 MG/DL (7-18); CALCIUM LEVEL 8.8 MG/DL (8.5-10.1); CARBON DIOXIDE LEVEL 29 MEQ/L (21-32); CHLORIDE LEVEL 103 MEQ/L (98-107); CREATININE FOR GFR 0.63 MG/DL (0.70-1.30); FERRITIN 126 NG/ML (26-388); GLOMERULAR FILTRATION RATE > 60.0 (>56); GLUCOSE, FASTING 89 MG/DL (70-105); MAGNESIUM LEVEL 2.2 MG/DL (1.8-2.4); PERCENT SATURATION 34.4 % (19.7-50.0); POTASSIUM SERUM 4.6 MEQ/L (3.5-5.1); SODIUM LEVEL 140 MEQ/L (136-145); TOTAL IRON BINDING CAPACITY 369 UG/DL (250-450); TOTAL PROTEIN 7.6 GM/DL (6.4-8.2)
[2017-06-19 17:47] LABS: ESTIMATED AVERAGE GLUCOSE 120 MG/DL (60-110)
[2017-06-19 17:50] LABS: VITAMIN B12 LEVEL 1238 PG/ML (247-911)
[2017-06-19 18:46] LABS: BASO % 0.6 % (0.0-1.0); EOS # 0.2 10^3/uL (0.0-0.50); EOS % 3.2 % (0.0-3.0); IMMATURE GRANULOCYTE % 0.3 % (0-0); LYMPH % 29.2 % (24.0-44.0); MEAN CORPUSCULAR HEMOGLOBIN 30.1 pg (27.0-33.0); MEAN CORPUSCULAR HGB CONC 32.4 g/dl (32.0-36.5); MONO # 0.5 10^3/uL (0.0-0.8); MONO % 6.9 % (0.0-5.0); NEUTROPHILS # 4.1 10^3/uL (1.8-7.7); NEUTROPHILS % 59.8 % (36.0-66.0); PLATELET COUNT, AUTOMATED 293 10^3/uL (150-450); RED CELL DISTRIBUTION WIDTH 12.2 % (11.5-14.5); WHITE BLOOD COUNT 6.8 10^3/uL (4.0-10.0)
[2017-06-20 11:01] LABS: PRETREATED FOLATE FOR RBCFOL 11.9 NG/ML
== END ==
LOC: M LABDRAWC 16:42
DX: K91.2 Postsurgical malabsorption, not elsewhere classified (principal); Z98.84 Bariatric surgery status; E55.9 Vitamin D deficiency, unspecified
CPT/HCPCS: 83550

== ENCOUNTER → 2017-07-15 | Outpatient (CLI) | payer MEDICARE ==
[2017-07-15 17:41] LABS: C REACTIVE PROTEIN QUANTITATIV < 0.30 MG/DL (0.00-0.30)
[2017-07-15 17:41] LABS: RHEUMATOID FACTOR QUANT < 10.0 IU/ML (0-15.0)
[2017-07-15 20:03] LABS: ERYTHROCYTE SEDIMENTATION RATE 10 mm/hr (0-20)
[2017-07-22 00:07] LABS: ANTINUCLEAR ANTIBODIES DIRECT Negative (Negative); HLA-B27 Negative (.); Lyme Disease IgG/IgM Antibodie <0.91 ISR (0.00-0.90); Lyme Disease IgM Ab Quantitati <0.80 index (0.00-0.79)
== END ==
LOC: M WUC 12:42
DX: G56.03 Carpal tunnel syndrome, bilateral upper limbs (principal)
CPT/HCPCS: 86140

== ENCOUNTER → 2017-08-27 | Outpatient (CLI) | payer OTHER, MEDICARE | LOC: M PAIN 09:15 | DX: M96.1 Postlaminectomy syndrome, not elsewhere classified (principal); M54.17 Radiculopathy, lumbosacral region; Z79.82 Long term (current) use of aspirin; Z88.8 Allergy status to other drugs, medicaments and biological substances; Z98.84 Bariatric surgery status | CPT/HCPCS: G0463 ==

== ENCOUNTER → 2017-11-05 | Outpatient (REF) | payer MEDICARE | LOC: M LAB REF 10:22 | DX: R19.8 Other specified symptoms and signs involving the digestive system and abdomen (principal) | CPT/HCPCS: 87507 ==

== ENCOUNTER 2017-11-07 08:01 | Day surgery (SDC) | payer MEDICARE ==
[2017-11-07] MEDS ORDERED: PROPOFOL 200 MG/20 ML VIAL As Ordered ×2 (09:06)
[2017-11-07] MEDS ORDERED: LIDOCAINE 2% INJ 100 MG/5 ML SDV (FOR ANES.) As Ordered (09:06)
[2017-11-07] MEDS ORDERED: NS 1,000 ML IV (09:15)
== END 2017-11-07 10:19 | disposition home or self-care (01) ==
LOC: M OPP 08:01
DX: Z12.11 Encounter for screening for malignant neoplasm of colon (principal); Z86.010 Personal history of colon polyps; D12.3 Benign neoplasm of transverse colon; K64.8 Other hemorrhoids; Z86.79 Personal history of other diseases of the circulatory system; M54.9 Dorsalgia, unspecified; G47.30 Sleep apnea, unspecified; Z98.1 Arthrodesis status; Z98.84 Bariatric surgery status; Z88.8 Allergy status to other drugs, medicaments and biological substances; Z79.82 Long term (current) use of aspirin; Z80.3 Family history of malignant neoplasm of breast; Z80.41 Family history of malignant neoplasm of ovary
CPT/HCPCS: 45385

== ENCOUNTER → 2017-11-27 | Outpatient (CLI) | payer OTHER | LOC: M PAIN 09:00 | DX: M96.1 Postlaminectomy syndrome, not elsewhere classified (principal); M54.17 Radiculopathy, lumbosacral region; I10 Essential (primary) hypertension; G47.30 Sleep apnea, unspecified; E66.01 Morbid (severe) obesity due to excess calories; Z68.41 Body mass index [BMI] 40.0-44.9, adult; Z79.82 Long term (current) use of aspirin; Z79.899 Other long term (current) drug therapy; Z88.8 Allergy status to other drugs, medicaments and biological substances; Z87.891 Personal history of nicotine dependence; Z98.84 Bariatric surgery status | CPT/HCPCS: G0463 ==

== ENCOUNTER → 2017-12-29 | Outpatient (CLI) | payer MEDICARE | LOC: M RAD 07:51 | DX: R10.9 Unspecified abdominal pain (principal) | CPT/HCPCS: 76705 ==

== ENCOUNTER → 2018-03-27 | Outpatient (CLI) | payer OTHER, MEDICARE | LOC: M PAIN 09:00 | DX: M96.1 Postlaminectomy syndrome, not elsewhere classified (principal); M54.17 Radiculopathy, lumbosacral region; G47.30 Sleep apnea, unspecified; E66.9 Obesity, unspecified; Z98.84 Bariatric surgery status; Z68.41 Body mass index [BMI] 40.0-44.9, adult; Z87.891 Personal history of nicotine dependence; Z79.82 Long term (current) use of aspirin; Z79.899 Other long term (current) drug therapy; Z88.8 Allergy status to other drugs, medicaments and biological substances | CPT/HCPCS: G0463 ==

== ENCOUNTER → 2018-06-26 | Outpatient (CLI) | payer OTHER, MEDICARE ==
[~2018-06-26] MED LIST changes: +ASPI1TAB PO; +CALCTAB63 PO; +MULTCAP11 PO; +VITA500T3 PO
== END ==
LOC: M PAIN 13:15
PROVIDERS: ATTEND Anesthesiology
DX: Z53.29 Procedure and treatment not carried out because of patient's decision for other reasons (principal)

== ENCOUNTER → 2018-07-27 | Outpatient (CLI) | payer OTHER ==
--- NOTE | 2018-08-08 23:39 | ECWPNPC ---
PATIENT NAME: CYRIL RUFF : 1960 GENDER: MALE VISIT DATE: 07/27/2018 DISCHARGE DATE: 07/27/18 1004 VISIT LOCKED DATE TIME: PHYSICIAN: ROBERT STANTON MD PHYSICIAN PAGER NO: [phone] RESOURCE: ROBERT STANTON MD REASON FOR APPOINTMENT 1. W/C BACK PAIN HISTORY OF PRESENT ILLNESS HISTORY OF PRESENT ILLNESS: PAIN THE PATIENT DESCRIBES THE PAIN... 58 YEAR OLD MALE PATIENT WITH A HISTORY OF CHRONIC LOW BACK PAIN. THE PATIENT DESCRIBES THE PAIN ACHING, SHARP, AND STABBING WITH A PAIN SCORE OF 1-5/10 DEPENDING ON PHYSICAL ACTIVITY. 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 THE PATIENT SAYS THAT THE PAIN STARTS IN HIS LOW BACK AREA AND RADIATES DOWN INTO HIS LEFT LEG WITH SOME NUMBNESS. PATIENT DENIES UNEXPLAINABLE WEIGHT LOSS, FEVER, CHILLS, NEW CHANGES ON HIS URINARY OR BOWEL CONTROL. FALL RISK SCREENING: SCREENING :NO FALLS IN THE PAST YEAR CURRENT MEDICATIONS TAKING VITAMIN C 500 MG CAPSULE ORALLY TAKING VITAMIN D TAKING VITAMIN B12 1000 MCG TABLET EXTENDED RELEASE 2 TABLET ORALLY DAILY TAKING CALTRATE 600+D 600-400 MG-UNIT TABLET 1 TABLET WITH FOOD ORALLY DAILY TAKING MULTI VITAMIN DAILY - TABLET 2 TABS ORALLY ONCE A DAY TAKING ASPIR-81 81 MG TABLET DELAYED RELEASE 1 TABLET ORALLY ONCE A DAY MEDICATION LIST REVIEWED AND RECONCILED WITH THE PATIENT PAST MEDICAL HISTORY SLEEP APNEA DEGENERATIVE SPINE HIGH BLOOD PRESSURE OBESITY: HIGH 320 GASTRIC BYPASS 12/2016 ALLERGIES STERIODS FOR INJECTION: ANAPHYLAXIS: ALLERGY SURGICAL HISTORY BACK SURGERY 1999 SHOULDER SURGERY 1988 4 TITANIUM RODS PUT IN BACK-16 BOLTS- AFTER ON THE JOB INJURY. CONTINUES F/U WITH DR. STANTON 2008 4 TEETH PULLED BY ORAL SURGERY 2013FEBRUARY 10 GASTRIC BYPASS 2016 FAMILY HISTORY FATHER: ALIVE 83 YRS, DIABETES, HIGH BLOOD PRESSURE, CHRONIC BRONCHITIS MOTHER: ALIVE 80 YRS, HIGH BLOOD PRESSURE,OVARIAN CANCER,BREAST CANCER ,BRAIN TUMOR REMOVED THIS WINTER 2015 SOCIAL HISTORY GENERAL: TOBACCO USE ARE YOU A:FORMER SMOKER NEVER SMOKER QUIT 2007 ADDITIONAL FINDINGS: TOBACCO USER NO ADDITIONAL FINDINGS: TOBACCO NON-USERCURRENT NON-SMOKER VAPORNO E-CIGARETTENO LUNG CANCER SCREENING SMOKING STATUS:FORMER SMOKER IS THE PATIENT BETWEEN THE AGE OF 54 AND 76?YES HAVE YOU QUIT SMOKING WITHIN THE PAST 15 YEARS?YES HAS THE PATIENT EVER BEEN DIAGNOSED WITH LUNG CANCER?NO BMI CARE GOAL FOLLOW-UP ABOVE NORMAL BMI FOLLOW-UPDIETARY MANAGEMENT EDUCATION, GUIDANCE, AND COUNSELING ALCOHOL SCREENING DID YOU HAVE A DRINK CONTAINING ALCOHOL IN THE PAST YEAR?YES HOW OFTEN DID YOU HAVE A DRINK CONTAINING ALCOHOL IN THE PAST YEAR?NEVER (0 POINTS) POINTS0 INTERPRETATIONNEGATIVE RECREATIONAL DRUG USE DRUG USE?NO CAFFEINE CAFFEINE USE?YES HOW OFTEN AND HOW MUCH? 6-8 CUPS COFFEE DAILY SEXUAL HX HAD SEX IN THE LAST 12 MONTHS (VAGINAL, ORAL, OR ANAL)?YES WITHWOMEN ONLY USE PROTECTION?YES HOW OFTEN?ALL OF THE TIME HAVE YOU EVER HAD AN STD?NO HIV / HEP-C SCREENING HIV TEST OFFERED TO PATIENT:YES DATE OFFERED:12/18/2017 TEST ACCEPTED:NO HEP-C TEST OFFERED TO PATIENT:YES DATE OFFERED:12/18/2017 REASON:PATIENT DECLINED TEST ACCEPTED:NO REASON:PATIENT DECLINED BROCHURE PROVIDED TO PATIENTNO BAPTISM [id number] SABIANISM LANGUAGE LANGUAGES SPOKEN:BOTSWANAN EDUCATION LEVEL OF EDUCATION:COLLEGE LEARNING BARRIERS / SPECIAL NEEDS CHANGE FROM LAST VISIT?NO 06/30/2018 BARRIERS TO LEARNING?NO HEARING IMPAIRED?NO VISION IMPAIRED?YES CHEATERS COGNITIVELY IMPAIRED?NO READINESS TO LEARN?YES LEARNING PREFERENCES?NO LEARNING CAPABILITIES PRESENT?YES EMOTIONAL BARRIERS?NO SPECIAL DEVICES?NO SCREEN VENT BINDER NEEDED?NO DOMESTIC VIOLENCE DO YOU FEEL SAFE IN YOUR ENVIRONMENT?YES OCCUPATION: RETIRED. DIET: REGULAR. EXERCISE: DAILY, WALKS. MARITAL STATUS: .. OTHERS AT HOME: FATHER, MOTHER. PAIN CLINIC PFS, CLERGY, PUBLIC HEALTH REFERRALS PFS REFERRAL NEEDED?NO CLERGY REFERRAL NEEDED?NO PUBLIC HEALTH REFERRAL NEEDED?NO WAS THE PROVIDER NOTIFIED OF ANY PERTINENT INFO?NO HAS THE PATIENT BEEN EDUCATED REGARDING HIS/HER PLAN OF CARE?YES HAS THE PATIENT BEEN EDUCATED REGARDING PAIN, THE RISK FOR PAIN, THE IMPORTANCE OF EFFECTIVE PAIN MANAGEMENT, AND THE PAIN ASSESSMENT PROCESS?YES ADVANCE DIRECTIVE ADVANCE DIRECTIVE DISCUSSED WITH PATIENT:YES HCP - CYRIL JOHNSON (FATHER) & DEYVI (MOTHER) REVIEWED WITH PATIENT 07/27/18 3668 JS. HOSPITALIZATION/MAJOR DIAGNOSTIC PROCEDURE SURGERY REVIEW OF SYSTEMS REVIEWED BY: PROVIDER: ROBERT STANTON MD . CONSTITUTIONAL: ANY CHANGE IN YOUR MEDICAL CONDITION? NO . CHILLS NO . FEVER NO . INFECTION: DO YOU HAVE NEW INFECTIONS? NO . DO YOU HAVE HISTORY OF MRSA? NO . MUSCULOSKELETAL: ANY NEW PATTERNS OF PAIN OR NUMBNESS? NO . GASTROENTEROLOGY: ANY NEW CHANGE IN BOWEL CONTROL? NO . GENITOURINARY: ANY NEW CHANGE IN BLADDER CONTROL? NO . IS THERE A CHANCE YOU COULD BE ? NO . HEMATOLOGY/LYMPH: DO YOU TAKE ANY BLOOD THINNERS? (FOR EXAMPLE- COUMADIN, PLAVIX, AGGRENOX, PLATEL, PRADAXA, OR XARELTO) NO . WHEN WAS YOUR LAST DOSE? DATE: TIME: . NEUROLOGY: HAVE YOU FALLEN IN THE PAST 12 MONTHS? NO . ANY NEW EXTREMITY NUMBNESS OR WEAKNESS? NO, PATIENT STATES LEFT LEGNUMBNESS, UNCHANGED . CARDIOLOGY: DO YOU HAVE A PACEMAKER OR DEFIBRILLATOR? NO . RESPIRATORY: HAVE YOU BEEN SICK IN THE PAST WEEK? YES, STATES HEAD AND CHEST COLD THE PAST COUPLE WEEKS, FEELS BETTER NOW . FEVER NO . FLU LIKE SYMPTOMS? NO . COUGH NO . INTEGUMENTARY: DO YOU HAVE ANY RASHES OR OPEN SORES? NO . ALLERGIC/IMMUNO: ARE YOU ALLERGIC TO IV DYE? NO . ANY NEW ALLERGIES? NO . PSYCHIATRIC: DO YOU HAVE THOUGHTS OF HURTING YOURSELF OR SOMEONE ELSE? NO . ARE YOU ABUSED, NEGLECTED, OR IN AN UNSAFE ENVIRONMENT? NO . ENDOCRINOLOGY: ARE YOU DIABETIC? NO . OTHER: DO YOU NEED ANY PRESCRIPTIONS? NO . IF YES, PLEASE LIST: ____ . ANY NEW PROBLEMS WITH YOUR MEDICATIONS? NO . WHEN DID YOU LAST EAT? ____ . WHEN DID YOU LAST DRINK? ____ . WHAT DID YOU LAST DRINK? ____ . NAME OF PERSON DRIVING YOU HOME? ____ . DO YOU HAVE ANY OTHER QUESTIONS OR CONCERNS YES, INSURANCE COMPANY CLAIMS HE IS SEEN TOO OFTEN . VITAL SIGNS WT 303.4 LBS, HT 70", BMI 43.53 INDEX, BP 158/90 MM HG, HR 71 /MIN, RR 18 /MIN, TEMP 97.6 F, OXYGEN SAT % 96%, SAFE IN ENV? (Y/N) YES, NA INITIALS [place] 09:10, REVIEWED BY: BRODY. EXAMINATION GENERAL EXAMINATION: PATIENT IS ALERT O X 3 AND COOPERATIVE. PATIENT IS LIMPING FROM HIS LEFT LEG. LEFT LEG IS WEAKER AT EXTENSION AND FLEXION. MRI OF THE LUMBAR SPINE DONE ON 09/13/2011 SHOWS POST LAMINECTOMY CHANGES. ASSESSMENTS LUMBAR POST-LAMINECTOMY SYNDROME - M96.1 (PRIMARY) TREATMENT LUMBAR POST-LAMINECTOMY SYNDROME CLINICAL NOTES: WE DISCUSSED SEVERAL ISSUES WITH MR. RUFF'S PAIN MANAGEMENT CASE. I WOULD LIKE TO GET THE PATIENT'S MOST RECENT LUMBAR MRI. I WOULD ALSO LIKE TO GET COPIES OF THE PATIENT'S INJECTION RECORDS FROM [facility] REGARDING HIS REACTION TO STEROIDS. THE PATIENT WILL FOLLOW UP IN 6 MONTHS. INSTRUCTIONS WERE GIVEN, QUESTIONS WERE ANSWERED, PATIENT REPORTS UNDERSTANDING AND AGREES WITH THE PLAN. I, THELMA ROSS, DOCUMENTED THE ABOVE INFORMATION ACTING A SCRIBE FOR DR. STANTON. I HAVE REVIEWED THE ABOVE DOCUMENT, WRITTEN BY THELMA BLAKEIBBranden AND I VERIFY THAT IT IS ACCURATE. PROCEDURES PN WORKMANS' COMP OPINION IN YOUR OPINION, WAS THE INCIDENT THAT THE PATIENT DESCRIBED THE COMPETENT MEDICAL CAUSE OF THIS INJURY/ILLNESS? YES ARE THE PATIENT'S COMPLAINTS CONSISTENT WITH HIS/HER HISTORY OF THE INJURY/ILLNESS? YES IS THE PATIENT'S HISTORY OF THE INJURY/ILLNESS CONSISTENT WITH YOUR OBJECTIVE FINDING? YES WHAT IS THE PERCENTAGE OF TEMPORARY IMPAIRMENT? MODERATE TO MARKED = 66.7% IS THE PATIENT WORKING? NO DOCTOR ON SITE: ROBERT MELENDEZ MD PROCEDURE CODES FA211 ESTABILISHED PATIENT [facility] FACILITY CHARGE G8427 CURRENT MEDS W/DOSAGES DOCUMENTED G8730 PAIN ASSESS POS TOOL F/U PLAN DOC DISPOSITION & COMMUNICATION FOLLOW UP 6 MONTHS ELECTRONICALLY SIGNED BY ROBERT STANTON MD, MD ON 08/08/2018 AT 05:22 PM EST DISCLAIMER : THIS IS A VISIT SUMMARY EXTRACTED FROM THE [employer] CHART. IT IS NOT A COPY OF THE [employer] PROGRESS NOTE. STANISLAV
== END ==
LOC: M PAIN 09:00
PROVIDERS: ATTEND Anesthesiology
DX: M96.1 Postlaminectomy syndrome, not elsewhere classified (principal); I10 Essential (primary) hypertension; G47.30 Sleep apnea, unspecified; E66.01 Morbid (severe) obesity due to excess calories; Z68.41 Body mass index [BMI] 40.0-44.9, adult; Z79.82 Long term (current) use of aspirin; Z79.899 Other long term (current) drug therapy; Z88.8 Allergy status to other drugs, medicaments and biological substances; Z98.84 Bariatric surgery status; Z87.891 Personal history of nicotine dependence

== ENCOUNTER → 2019-01-22 | Outpatient (CLI) | payer OTHER ==
[~2019-01-22] MED LIST changes: -ASPI1TAB PO; +ASPI81TA26 PO; +CYAN500T8 PO; -VITA500T3 PO
--- NOTE | 2019-02-03 02:21 | ECWPNPC ---
PATIENT NAME: CYRIL RUFF : 1960 GENDER: MALE VISIT DATE: 01/22/2019 DISCHARGE DATE: 01/22/19 1025 VISIT LOCKED DATE TIME: PHYSICIAN: ROBERT STANTON MD PHYSICIAN PAGER NO: [phone] RESOURCE: ROBERT STANTON MD REASON FOR APPOINTMENT 1. W/C LOW BACK HISTORY OF PRESENT ILLNESS HISTORY OF PRESENT ILLNESS: PAIN THE PATIENT DESCRIBES THE PAIN... 58 YEAR OLD MALE PATIENT WITH A HISTORY OF CHRONIC LOW BACK PAIN. THE PATIENT DESCRIBES THE PAIN ACHING, STABBING, SHOOTING, SHARP, DAILY, AND SOMETIMES NIGHTLY WITH A PAIN SCORE OF 4-8/10 DEPENDING ON PHYSICAL ACTIVITY. 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 THE PATIENT STATES HIS PAIN BEGINS IN HIS LOW BACK. THE PATIENT SAYS HIS PAIN INCREASES WITH ACTIVITIES. THE PATIENT SAYS HIS PAIN IS CAUSING DIFFICULTIES IN PERFORMING HIS DAILY ACTIVITIES SUCH MOVING, CLEANING, STANDING UP STRAIGHT, AND SITTING WITHOUT BACK SUPPORT. THE PATIENT MENTIONS HE HAS A HISTORY OF BACK SURGERY MANY YEARS AGO. PATIENT DENIES UNEXPLAINABLE WEIGHT LOSS, FEVER, CHILLS, NEW CHANGES ON HIS URINARY OR BOWEL CONTROL. FALL RISK SCREENING: SCREENING :NO FALLS REPORTED IN THE LAST YEAR CURRENT MEDICATIONS TAKING VITAMIN C 500 MG CAPSULE ORALLY TAKING VITAMIN D TAKING VITAMIN B12 1000 MCG TABLET EXTENDED RELEASE 2 TABLET ORALLY DAILY TAKING CALTRATE 600+D 600-400 MG-UNIT TABLET 1 TABLET WITH FOOD ORALLY DAILY TAKING MULTI VITAMIN DAILY - TABLET 2 TABS ORALLY ONCE A DAY TAKING ASPIR-81 81 MG TABLET DELAYED RELEASE 1 TABLET ORALLY ONCE A DAY MEDICATION LIST REVIEWED AND RECONCILED WITH THE PATIENT PAST MEDICAL HISTORY SLEEP APNEA DEGENERATIVE SPINE HIGH BLOOD PRESSURE OBESITY: HIGH 320 GASTRIC BYPASS 12/2016 ALLERGIES STERIODS FOR INJECTION: ANAPHYLAXIS - ALLERGY SURGICAL HISTORY BACK SURGERY 1999 SHOULDER SURGERY 1988 4 TITANIUM RODS PUT IN BACK-16 BOLTS- AFTER ON THE JOB INJURY. CONTINUES F/U WITH DR. STANTON 2008 4 TEETH PULLED BY ORAL SURGERY 2013FEBRUARY 10 GASTRIC BYPASS 2016 FAMILY HISTORY FATHER: ALIVE 83 YRS, DIABETES, HIGH BLOOD PRESSURE, CHRONIC BRONCHITIS, DIAGNOSED WITH DIABETES, HYPERTENSION MOTHER: ALIVE 80 YRS, HIGH BLOOD PRESSURE,OVARIAN CANCER,BREAST CANCER ,BRAIN TUMOR REMOVED THIS WINTER 2015, STROKE, CANCER SOCIAL HISTORY GENERAL: TOBACCO USE ARE YOU A:FORMER SMOKER NEVER SMOKER QUIT 2007 ADDITIONAL FINDINGS: TOBACCO USER NO ADDITIONAL FINDINGS: TOBACCO NON-USERCURRENT NON-SMOKER VAPORNO E-CIGARETTENO HIV / HEP-C SCREENING HIV TEST OFFERED TO PATIENT:YES DATE OFFERED:12/18/2017 TEST ACCEPTED:NO HEP-C TEST OFFERED TO PATIENT:YES DATE OFFERED:12/18/2017 REASON:PATIENT DECLINED TEST ACCEPTED:NO REASON:PATIENT DECLINED BROCHURE PROVIDED TO PATIENTNO OTHERS AT HOME: FATHER, MOTHER. EDUCATION LEVEL OF EDUCATION:COLLEGE DIET: REGULAR. LANGUAGE LANGUAGES SPOKEN:HUNGARIAN DOMESTIC VIOLENCE DO YOU FEEL SAFE IN YOUR ENVIRONMENT?YES BMI CARE GOAL FOLLOW-UP ABOVE NORMAL BMI FOLLOW-UPDIETARY MANAGEMENT EDUCATION, GUIDANCE, AND COUNSELING RECREATIONAL DRUG USE DRUG USE?NO EXERCISE: DAILY, WALKS. LEARNING BARRIERS / SPECIAL NEEDS CHANGE FROM LAST VISIT?NO 06/30/2018 BARRIERS TO LEARNING?NO HEARING IMPAIRED?NO VISION IMPAIRED?YES CHEATERS COGNITIVELY IMPAIRED?NO READINESS TO LEARN?YES LEARNING PREFERENCES?NO LEARNING CAPABILITIES PRESENT?YES EMOTIONAL BARRIERS?NO SPECIAL DEVICES?NO PRIMARY GRADE TEACHER NEEDED?NO LUNG CANCER SCREENING SMOKING STATUS:FORMER SMOKER IS THE PATIENT BETWEEN THE AGE OF 54 AND 76?YES HAVE YOU QUIT SMOKING WITHIN THE PAST 15 YEARS?YES HAS THE PATIENT EVER BEEN DIAGNOSED WITH LUNG CANCER?NO PAIN CLINIC PFS, CLERGY, PUBLIC HEALTH REFERRALS PFS REFERRAL NEEDED?NO CLERGY REFERRAL NEEDED?NO PUBLIC HEALTH REFERRAL NEEDED?NO WAS THE PROVIDER NOTIFIED OF ANY PERTINENT INFO?NO HAS THE PATIENT BEEN EDUCATED REGARDING HIS/HER PLAN OF CARE?YES HAS THE PATIENT BEEN EDUCATED REGARDING PAIN, THE RISK FOR PAIN, THE IMPORTANCE OF EFFECTIVE PAIN MANAGEMENT, AND THE PAIN ASSESSMENT PROCESS?YES LATEX QUESTIONNAIRE LATEX ALLERGY : HAVE YOU EVER DEVELOPED ANY TYPE OF REACTION AFTER HANDLING LATEX PRODUCTS SUCH RUBBER GLOVES, CONDOMS, DIAPHRAGMS, BALLOONS, SOCKS, OR UNDERWEAR?NO LATEX ALLERGY : HAVE YOU EVER DEVELOPED ANY TYPE OF REACTION DURING OR AFTER DENTAL APPOINTMENT, VAGINAL/RECTAL EXAMINATION, SURGICAL PROCEDURE, OR ANY OTHER EXPOSURE?NO LATEX RISK : HAVE YOU EVER HAD ANY DIFFICULTY BREATHING OR HIVES AFTER EATING OR HANDLING ANY FRUITS, OR VEGETABLES; SUCH KIWI, BANANAS, STONE FRUITS, OR CHESTNUTSNO LATEX RISK : DO YOU HAVE A PREVIOUS PERSONAL HISTORY OF MORE THAN NINE SURGERIES, SPINA BIFIDA, OR REPEATED CATHERIZATIONS? NO LATEX RISK : ARE YOU FREQUENTLY EXPOSED TO LATEX PRODUCTS IN YOUR OCCUPATION?NO DATE ASKED : 01/22/2019 CAFFEINE CAFFEINE USE?YES HOW OFTEN AND HOW MUCH? 6-8 CUPS COFFEE DAILY ADVANCE DIRECTIVE ADVANCE DIRECTIVE DISCUSSED WITH PATIENT:YES HCP - CYRIL JOHNSON (FATHER) & DEYVI (MOTHER) QUAKER [id number] BUDDHISM MARITAL STATUS: .. ALCOHOL SCREENING DID YOU HAVE A DRINK CONTAINING ALCOHOL IN THE PAST YEAR?YES HOW OFTEN DID YOU HAVE A DRINK CONTAINING ALCOHOL IN THE PAST YEAR?NEVER (0 POINTS) POINTS0 INTERPRETATIONNEGATIVE OCCUPATION: RETIRED. SEXUAL HX HAD SEX IN THE LAST 12 MONTHS (VAGINAL, ORAL, OR ANAL)?YES WITHWOMEN ONLY USE PROTECTION?YES HOW OFTEN?ALL OF THE TIME HAVE YOU EVER HAD AN STD?NO REVIEWED WITH PATIENT 07/27/18 0940 JS. HOSPITALIZATION/MAJOR DIAGNOSTIC PROCEDURE SURGERY REVIEW OF SYSTEMS REVIEWED BY: PROVIDER: ROBERT STANTON MD . CONSTITUTIONAL: ANY CHANGE IN YOUR MEDICAL CONDITION? NO . CHILLS NO . FEVER NO . INFECTION: DO YOU HAVE NEW INFECTIONS? NO . DO YOU HAVE HISTORY OF MRSA? NO . MUSCULOSKELETAL: ANY NEW PATTERNS OF PAIN OR NUMBNESS? NO . GASTROENTEROLOGY: ANY NEW CHANGE IN BOWEL CONTROL? NO . GENITOURINARY: ANY NEW CHANGE IN BLADDER CONTROL? NO . IS THERE A CHANCE YOU COULD BE ? NO . HEMATOLOGY/LYMPH: DO YOU TAKE ANY BLOOD THINNERS? (FOR EXAMPLE- COUMADIN, PLAVIX, AGGRENOX, PLATEL, PRADAXA, OR XARELTO) NO . WHEN WAS YOUR LAST DOSE? DATE: TIME: . NEUROLOGY: HAVE YOU FALLEN IN THE PAST 12 MONTHS? NO . ANY NEW EXTREMITY NUMBNESS OR WEAKNESS? NO . CARDIOLOGY: DO YOU HAVE A PACEMAKER OR DEFIBRILLATOR? NO . RESPIRATORY: HAVE YOU BEEN SICK IN THE PAST WEEK? NO . FEVER NO . FLU LIKE SYMPTOMS? NO . COUGH NO . INTEGUMENTARY: DO YOU HAVE ANY RASHES OR OPEN SORES? NO . ALLERGIC/IMMUNO: ARE YOU ALLERGIC TO IV DYE? NO . ANY NEW ALLERGIES? NO . PSYCHIATRIC: DO YOU HAVE THOUGHTS OF HURTING YOURSELF OR SOMEONE ELSE? NO . ARE YOU ABUSED, NEGLECTED, OR IN AN UNSAFE ENVIRONMENT? NO . ENDOCRINOLOGY: ARE YOU DIABETIC? NO . OTHER: DO YOU NEED ANY PRESCRIPTIONS? NO . IF YES, PLEASE LIST: ____ . ANY NEW PROBLEMS WITH YOUR MEDICATIONS? NO . WHEN DID YOU LAST EAT? ____ . WHEN DID YOU LAST DRINK? ____ . WHAT DID YOU LAST DRINK? ____ . NAME OF PERSON DRIVING YOU HOME? ____ . DO YOU HAVE ANY OTHER QUESTIONS OR CONCERNS YES,IS THERE ARTHRITIS MEDICATION FOR MY ACHING BACK . VITAL SIGNS WT 295 LBS, HT 70", BMI 42.32 INDEX, BP 169/82 MM HG, HR 68 /MIN, RR 18 /MIN, TEMP 98.3 F, OXYGEN SAT % 95%, SAFE IN ENV? (Y/N) YES, NA INITIALS AW 0836, REVIEWED BY: KG. EXAMINATION GENERAL EXAMINATION: PATIENT IS ALERT O X 3 AND COOPERATIVE. TENDERNESS IN THE LOW BACK. PAIN INCREASES OVER THE LUMBAR FACET JOINTS WITH EXTENSION AND LATERAL ROTATION OF THE BACK. ANTALGIC WALK. MRI OF THE LUMBAR SPINE DONE ON 09/13/2011 SHOWS LAMINECTOMY DEFECTS AND PSEUDOMENINGOCELE OR SEROMA PRESENT AT THE LAMINECTOMY SITE. ASSESSMENTS SPONDYLOSIS OF LUMBAR REGION WITHOUT MYELOPATHY OR RADICULOPATHY - M47.816 (PRIMARY) LUMBAR POST-LAMINECTOMY SYNDROME - M96.1 SPONDYLOSIS OF LUMBOSACRAL REGION WITHOUT MYELOPATHY OR RADICULOPATHY - M47.817 TREATMENT LUMBAR POST-LAMINECTOMY SYNDROME CLINICAL NOTES: WE DISCUSSED SEVERAL ISSUES WITH MR. RUFF'S PAIN MANAGEMENT CASE. DUE TO THE LUMBAR SPONDYLOSIS, I WOULD LIKE TO MOVE FORWARD WITH A BILATERAL L4-L5, L5-S1 DIAGNOSTIC LUMBAR FACET BLOCK __#1 TO CONSIDER RADIOFREQUENCY. WE DISCUSSED THE BENEFITS, RISKS, AND ALTERNATIVES OF THE PROCEDURE AND THE PATIENT WOULD LIKE TO PROCEED. I AM REQUESTING FOR A LUMBAR MRI WITH AND WITHOUT CONTRAST TO BE DONE, WELL A BUN AND CREATININE TEST FOR THE CONTRAST. MRI SHOULD BE DONE BEFORE THE PROCEDURE DUE TO THE LONG TIME WITH OUT MRI AND TO SEE POSSIBLE PATHOLOGY PRIOR ANY INJECTION .THE PATIENT WILL FOLLOW UP WITH THE NURSE PRACTITIONER IN 2 MONTHS. INSTRUCTIONS WERE GIVEN, QUESTIONS WERE ANSWERED, PATIENT REPORTS UNDERSTANDING AND AGREES WITH THE PLAN. I, RAHEEM HO, DOCUMENTED THE ABOVE INFORMATION ACTING A SCRIBE FOR DR. STANTON. I HAVE REVIEWED THE ABOVE DOCUMENT, WRITTEN BY RAHEEM BAIN AND I VERIFY THAT IT IS ACCURATE. . PROCEDURES PN WORKMANS' COMP OPINION IN YOUR OPINION, WAS THE INCIDENT THAT THE PATIENT DESCRIBED THE COMPETENT MEDICAL CAUSE OF THIS INJURY/ILLNESS? YES ARE THE PATIENT'S COMPLAINTS CONSISTENT WITH HIS/HER HISTORY OF THE INJURY/ILLNESS? YES IS THE PATIENT'S HISTORY OF THE INJURY/ILLNESS CONSISTENT WITH YOUR OBJECTIVE FINDING? YES WHAT IS THE PERCENTAGE OF TEMPORARY IMPAIRMENT? MODERATE TO MARKED = 66.7% IS THE PATIENT WORKING? NO DOCTOR ON SITE: ROBERT MELENDEZ MD PREVENTIVE MEDICINE PAIN CLINIC TEACHING: PROCEDURE TEACHING DISCUSSED THE DX FACET AND HOW HE NEEDS TO ARRIVE IN PAIN RATING FROM 8-10 ALSO GAVE PRINTED MATERIAL FOR RADIOFREQUENCY. PROCEDURE CODES FA211 ESTABILISHED PATIENT [facility] FACILITY CHARGE [id number] CURRENT MEDS W/DOSAGES DOCUMENTED G8730 PAIN ASSESS POS TOOL F/U PLAN DOC DISPOSITION & COMMUNICATION FOLLOW UP 2 MONTHS (REASON: MRI/DIAGNOSTIC FB) ELECTRONICALLY SIGNED BY ROBERT STANTON MD, MD ON 02/02/2019 AT 01:01 PM EDT DISCLAIMER : THIS IS A VISIT SUMMARY EXTRACTED FROM THE [employer] CHART. IT IS NOT A COPY OF THE [employer] PROGRESS NOTE. STANISLAV
== END ==
LOC: M PAIN 08:30
PROVIDERS: ATTEND Anesthesiology
DX: M47.816 Spondylosis without myelopathy or radiculopathy, lumbar region (principal); M96.1 Postlaminectomy syndrome, not elsewhere classified; M47.817 Spondylosis without myelopathy or radiculopathy, lumbosacral region; G47.30 Sleep apnea, unspecified; I10 Essential (primary) hypertension; Z98.84 Bariatric surgery status; Z87.891 Personal history of nicotine dependence; Z88.8 Allergy status to other drugs, medicaments and biological substances; E66.01 Morbid (severe) obesity due to excess calories; Z68.41 Body mass index [BMI] 40.0-44.9, adult; Z79.82 Long term (current) use of aspirin; Z79.899 Other long term (current) drug therapy

== ENCOUNTER → 2019-02-12 | Outpatient (CLI) | payer OTHER ==
--- NOTE | 2019-02-12 12:50 | REPVR ---
EXAM: MR Lumbar Spine Without Contrast. EXAM DATE/TIME: 02/12/2019 9:11 AM CLINICAL HISTORY: 58 years old, male; Low back pain and lumbago with sciatica; Bilateral; Prior surgery; Surgery date: 6+ months; Surgery type: Fusion x4 last one 2008; Patient HX: PT was unable to complete exam which was originally ordered as with contrast due to claustrophobia. PT refused further imaging and contrast at this time. Aml; Additional info: Severe lbp lumbar post laminectomy pain spondylosi TECHNIQUE: Imaging protocol: Multiplanar magnetic resonance images of the lumbar spine without intravenous contrast. COMPARISON: No relevant prior studies available. FINDINGS: There are operative changes of fusion from L3-S1. Bilateral pedicle screws are present at each of the L3, L4, L5 and S1 levels. There are also disc spacers at L3-4, L4-5 and L5-S1. Associated artifact somewhat degrades evaluation. There appears to have been laminectomy throughout the fused levels. A postoperative collection posterior to the thecal sac, centered at L4, measures up to 4.9 cm transverse by 2.1 cm AP by 4.4 cm craniocaudad. Vertebral body heights are intact. Alignment is maintained. The conus is unremarkable in appearance, with its tip at the L1-2 level. There are varying degrees of disc desiccation indicating intervertebral disc degeneration. Schmorl's nodes are present at some levels. There is a 1.8 cm hemangioma in the L1 vertebral body. The visualized abdominal structures appear unremarkable. T12-L1: Included on the sagittal sequences only, there appears to be a small disc osteophyte complex with mild left neural foraminal narrowing without significant spinal stenosis. L1-2: Disc osteophyte complex combining with facet arthrosis to lead to mild bilateral neural foraminal narrowing with mild narrowing of the bilateral lateral recesses, without significant central canal stenosis. L2-3: Disc osteophyte complex combining with facet arthrosis to lead to mild to moderate right and moderate left neural foraminal narrowing with mild bilateral lateral recess narrowing, without significant central canal stenosis. L3-4: Status post fusion. There appears to be osteophytic ridge leading to at least mild bilateral neural foraminal narrowing. Artifact somewhat obscures evaluation. Cannot evaluate for scarring without contrast. L4-5: Status post fusion. There appears to be a disc osteophyte complex leading to at least to moderate right and mild left neural foraminal narrowing. Artifacts somewhat obscures evaluation. Cannot evaluate for scarring without contrast. L5-S1: Status post fusion. There appears to be a disc osteophyte complex leading to at least moderate bilateral neural foraminal narrowing. Artifact somewhat obscures evaluation. Cannot evaluate for scarring without contrast. If surgery is considered, recommend level confirmation. IMPRESSION: Postoperative spine demonstrating multilevel disc desiccation indicating intervertebral disk degeneration with disc displacements as described. Electronically signed by: Van Ward On 02/12/2019 12:50:20 PM
== END ==
LOC: M PLARAD 09:08
PROVIDERS: ATTEND Anesthesiology
DX: M54.5 Low back pain (principal); Z98.1 Arthrodesis status; R93.7 Abnormal findings on diagnostic imaging of other parts of musculoskeletal system

== ENCOUNTER → 2019-03-15 | Outpatient (CLI) | payer OTHER ==
--- NOTE | 2019-03-28 23:55 | ECWPNPC ---
PATIENT NAME: CYRIL RUFF : 1960 GENDER: MALE VISIT DATE: 03/15/2019 DISCHARGE DATE: 03/15/19 1026 VISIT LOCKED DATE TIME: PHYSICIAN: ROBERT STANTON MD PHYSICIAN PAGER NO: [phone] RESOURCE: ROBERT STANTON MD REASON FOR APPOINTMENT 1. W/C MRI REVIEW, DISCUSS FACET BLK DENIAL HISTORY OF PRESENT ILLNESS HISTORY OF PRESENT ILLNESS: PAIN THE PATIENT DESCRIBES THE PAIN... 59 YEAR OLD MALE PATIENT WITH A HISTORY OF CHRONIC LOW BACK PAIN. THE PATIENT DESCRIBES THE PAIN ACHING, BURNING, AND SORE MOSTLY DURING THE DAY BUT SOMETIMES AT NIGHT WITH A PAIN SCORE OF 6-8/10 DEPENDING ON PHYSICAL ACTIVITY. THE PATIENT STATES HE IS EXPERIENCING NUMBNESS IN HIS LEFT LEG. 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 PATIENT SAYS HE HAD BACK SURGERY MANY YEARS AGO. PATIENT DENIES UNEXPLAINABLE WEIGHT LOSS, FEVER, CHILLS, NEW CHANGES ON HIS URINARY OR BOWEL CONTROL. FALL RISK SCREENING: SCREENING :NO FALLS REPORTED IN THE LAST YEAR CURRENT MEDICATIONS TAKING VITAMIN C 500 MG CAPSULE ORALLY TAKING VITAMIN D TAKING VITAMIN B12 1000 MCG TABLET EXTENDED RELEASE 2 TABLET ORALLY DAILY TAKING CALTRATE 600+D 600-400 MG-UNIT TABLET 1 TABLET WITH FOOD ORALLY DAILY TAKING MULTI VITAMIN DAILY - TABLET 2 TABS ORALLY ONCE A DAY TAKING ASPIR-81 81 MG TABLET DELAYED RELEASE 1 TABLET ORALLY ONCE A DAY TAKING IBUPROFEN 1 TAB ORAL MEDICATION LIST REVIEWED AND RECONCILED WITH THE PATIENT PAST MEDICAL HISTORY SLEEP APNEA DEGENERATIVE SPINE HIGH BLOOD PRESSURE OBESITY: HIGH 320 GASTRIC BYPASS 12/2016 ALLERGIES STERIODS FOR INJECTION: ANAPHYLAXIS - ALLERGY SURGICAL HISTORY BACK SURGERY 1999 SHOULDER SURGERY 1988 4 TITANIUM RODS PUT IN BACK-16 BOLTS- AFTER ON THE JOB INJURY. CONTINUES F/U WITH DR. STANTON 2008 4 TEETH PULLED BY ORAL SURGERY 2013FEBRUARY 10 GASTRIC BYPASS 2016 FAMILY HISTORY FATHER: ALIVE 83 YRS, DIABETES, HIGH BLOOD PRESSURE, CHRONIC BRONCHITIS, DIAGNOSED WITH DIABETES, HYPERTENSION MOTHER: ALIVE 80 YRS, HIGH BLOOD PRESSURE,OVARIAN CANCER,BREAST CANCER ,BRAIN TUMOR REMOVED THIS WINTER 2015, UNSPECIFIED CEREBRAL ARTERY OCCLUSION WITH CEREBRAL INFARCTION, OTHER MALIGNANT NEOPLASM OF UNSPECIFIED SITE SOCIAL HISTORY GENERAL: TOBACCO USE ARE YOU A:FORMER SMOKER NEVER SMOKER QUIT 2007 ADDITIONAL FINDINGS: TOBACCO USER NO ADDITIONAL FINDINGS: TOBACCO NON-USERCURRENT NON-SMOKER VAPORNO E-CIGARETTENO HIV / HEP-C SCREENING HIV TEST OFFERED TO PATIENT:YES DATE OFFERED:12/18/2017 TEST ACCEPTED:NO HEP-C TEST OFFERED TO PATIENT:YES DATE OFFERED:12/18/2017 REASON:PATIENT DECLINED TEST ACCEPTED:NO REASON:PATIENT DECLINED BROCHURE PROVIDED TO PATIENTNO OTHERS AT HOME: FATHER, MOTHER. EDUCATION LEVEL OF EDUCATION:COLLEGE DIET: REGULAR. LANGUAGE LANGUAGES SPOKEN:SLOVAK DOMESTIC VIOLENCE DO YOU FEEL SAFE IN YOUR ENVIRONMENT?YES BMI CARE GOAL FOLLOW-UP ABOVE NORMAL BMI FOLLOW-UPDIETARY MANAGEMENT EDUCATION, GUIDANCE, AND COUNSELING RECREATIONAL DRUG USE DRUG USE?NO EXERCISE: DAILY, WALKS. LEARNING BARRIERS / SPECIAL NEEDS CHANGE FROM LAST VISIT?NO 06/30/2018 BARRIERS TO LEARNING?NO HEARING IMPAIRED?NO VISION IMPAIRED?YES CHEATERS COGNITIVELY IMPAIRED?NO READINESS TO LEARN?YES LEARNING PREFERENCES?NO LEARNING CAPABILITIES PRESENT?YES EMOTIONAL BARRIERS?NO SPECIAL DEVICES?NO PARTS CLASSIFIER NEEDED?NO LUNG CANCER SCREENING SMOKING STATUS:FORMER SMOKER IS THE PATIENT BETWEEN THE AGE OF 54 AND 76?YES HAVE YOU QUIT SMOKING WITHIN THE PAST 15 YEARS?YES HAS THE PATIENT EVER BEEN DIAGNOSED WITH LUNG CANCER?NO PAIN CLINIC PFS, CLERGY, PUBLIC HEALTH REFERRALS PFS REFERRAL NEEDED?NO CLERGY REFERRAL NEEDED?NO PUBLIC HEALTH REFERRAL NEEDED?NO WAS THE PROVIDER NOTIFIED OF ANY PERTINENT INFO?YES HAS THE PATIENT BEEN EDUCATED REGARDING HIS/HER PLAN OF CARE?YES HAS THE PATIENT BEEN EDUCATED REGARDING PAIN, THE RISK FOR PAIN, THE IMPORTANCE OF EFFECTIVE PAIN MANAGEMENT, AND THE PAIN ASSESSMENT PROCESS?YES LATEX QUESTIONNAIRE LATEX ALLERGY : HAVE YOU EVER DEVELOPED ANY TYPE OF REACTION AFTER HANDLING LATEX PRODUCTS SUCH RUBBER GLOVES, CONDOMS, DIAPHRAGMS, BALLOONS, SOCKS, OR UNDERWEAR?NO LATEX ALLERGY : HAVE YOU EVER DEVELOPED ANY TYPE OF REACTION DURING OR AFTER DENTAL APPOINTMENT, VAGINAL/RECTAL EXAMINATION, SURGICAL PROCEDURE, OR ANY OTHER EXPOSURE?NO LATEX RISK : HAVE YOU EVER HAD ANY DIFFICULTY BREATHING OR HIVES AFTER EATING OR HANDLING ANY FRUITS, OR VEGETABLES; SUCH KIWI, BANANAS, STONE FRUITS, OR CHESTNUTSNO LATEX RISK : DO YOU HAVE A PREVIOUS PERSONAL HISTORY OF MORE THAN NINE SURGERIES, SPINA BIFIDA, OR REPEATED CATHERIZATIONS? NO LATEX RISK : ARE YOU FREQUENTLY EXPOSED TO LATEX PRODUCTS IN YOUR OCCUPATION?NO DATE ASKED : 03/15/2019 CAFFEINE CAFFEINE USE?YES HOW OFTEN AND HOW MUCH? 6-8 CUPS COFFEE DAILY ADVANCE DIRECTIVE ADVANCE DIRECTIVE DISCUSSED WITH PATIENT:YES HCP - CYRIL JOHNSON (FATHER) & DEYVI (MOTHER) DRUZE [id number] MOSQUE MARITAL STATUS: .. ALCOHOL SCREENING DID YOU HAVE A DRINK CONTAINING ALCOHOL IN THE PAST YEAR?YES HOW OFTEN DID YOU HAVE A DRINK CONTAINING ALCOHOL IN THE PAST YEAR?NEVER (0 POINTS) POINTS0 INTERPRETATIONNEGATIVE OCCUPATION: RETIRED. SEXUAL HX HAD SEX IN THE LAST 12 MONTHS (VAGINAL, ORAL, OR ANAL)?YES WITHWOMEN ONLY USE PROTECTION?YES HOW OFTEN?ALL OF THE TIME HAVE YOU EVER HAD AN STD?NO REVIEWED WITH PATIENT 07/27/18 0921 JS. HOSPITALIZATION/MAJOR DIAGNOSTIC PROCEDURE SURGERY REVIEW OF SYSTEMS REVIEWED BY: PROVIDER: ROBERT STANTON MD . CONSTITUTIONAL: ANY CHANGE IN YOUR MEDICAL CONDITION? NO . CHILLS NO . FEVER NO . INFECTION: DO YOU HAVE NEW INFECTIONS? NO . DO YOU HAVE HISTORY OF MRSA? NO . MUSCULOSKELETAL: ANY NEW PATTERNS OF PAIN OR NUMBNESS? NO . GASTROENTEROLOGY: ANY NEW CHANGE IN BOWEL CONTROL? NO . GENITOURINARY: ANY NEW CHANGE IN BLADDER CONTROL? NO . IS THERE A CHANCE YOU COULD BE ? NO . HEMATOLOGY/LYMPH: DO YOU TAKE ANY BLOOD THINNERS? (FOR EXAMPLE- COUMADIN, PLAVIX, AGGRENOX, PLATEL, PRADAXA, OR XARELTO) NO . WHEN WAS YOUR LAST DOSE? DATE: TIME: . NEUROLOGY: HAVE YOU FALLEN IN THE PAST 12 MONTHS? NO . ANY NEW EXTREMITY NUMBNESS OR WEAKNESS? NO . CARDIOLOGY: DO YOU HAVE A PACEMAKER OR DEFIBRILLATOR? NO . RESPIRATORY: HAVE YOU BEEN SICK IN THE PAST WEEK? NO . FEVER NO . FLU LIKE SYMPTOMS? NO . COUGH NO . INTEGUMENTARY: DO YOU HAVE ANY RASHES OR OPEN SORES? NO . ALLERGIC/IMMUNO: ARE YOU ALLERGIC TO IV DYE? NO . ANY NEW ALLERGIES? NO . PSYCHIATRIC: DO YOU HAVE THOUGHTS OF HURTING YOURSELF OR SOMEONE ELSE? NO . ARE YOU ABUSED, NEGLECTED, OR IN AN UNSAFE ENVIRONMENT? NO . ENDOCRINOLOGY: ARE YOU DIABETIC? NO . OTHER: DO YOU NEED ANY PRESCRIPTIONS? NO . IF YES, PLEASE LIST: ____ . ANY NEW PROBLEMS WITH YOUR MEDICATIONS? NO . WHEN DID YOU LAST EAT? ____ . WHEN DID YOU LAST DRINK? ____ . WHAT DID YOU LAST DRINK? ____ . NAME OF PERSON DRIVING YOU HOME? ____ . DO YOU HAVE ANY OTHER QUESTIONS OR CONCERNS NO . VITAL SIGNS WT 299.8 LBS, HT 70", BMI 43.01 INDEX, BP 178/86 MM HG, HR 72 /MIN, RR 18 /MIN, TEMP 96.9 F, OXYGEN SAT % 99%, SAFE IN ENV? (Y/N) Y, NA INITIALS 09:34, REVIEWED BY: XIOMARA. EXAMINATION GENERAL EXAMINATION: PATIENT IS ALERT O X 3 AND COOPERATIVE. TENDERNESS IN THE LOWER BACK AREA, PARASPINAL GROUP ABOVE THE FUSION AREA. PAIN INCREASES OVER THE LUMBAR FACET JOINTS WITH EXTENSION AND LATERAL ROTATION OF THE BACK. LEFT LEG IS WEAKER AT EXTENSION AND FLEXION. MRI OF THE LUMBAR SPINE DONE ON 02/12/2019 SHOWS FUSION AT L3 TO S1, FACET ARTHROPATHY CHANGES, AND BULGING DISCS AT MULTIPLE LEVELS WITH SOME FLUID COLLECTION POSTERIOR TO THE THECAL SAC AT L-4. ASSESSMENTS SPONDYLOSIS OF LUMBAR REGION WITHOUT MYELOPATHY OR RADICULOPATHY - M47.816 (PRIMARY) LUMBAR POST-LAMINECTOMY SYNDROME - M96.1 SPONDYLOSIS OF LUMBOSACRAL REGION WITHOUT MYELOPATHY OR RADICULOPATHY - M47.817 TREATMENT SPONDYLOSIS OF LUMBAR REGION WITHOUT MYELOPATHY OR RADICULOPATHY CLINICAL NOTES: WE DISCUSSED SEVERAL ISSUES WITH MR. RUFF'S PAIN MANAGEMENT CASE. DUE TO THE LUMBAR SPONDYLOSIS, PATIENT WAS A CANDIDATE FOR DIAGNOSTIC TESTS ABOVE FUSION, HOWEVER RADIO FREQUENCY WAS DENIED BY WORKER'S COMP. I WILL REFER PATIENT TO PATRICIA Herrera FOR CONSIDERATION OF MEDICATION MANAGEMENT FOR HIS WORKER'S COMP CASE. PATIENT WILL FOLLOW UP WITH THE NURSE PRACTITIONER IN 3 MONTHS. THE PATIENT WAS ADVISED TO CALL IF HIS CONDITION DETERIORATE TO THE POINT THAT HE CANNOT FUNCTION, AND WE WILL TRY AGAIN TO WORK WITH HIS INSURANCE TO TRY TO RECEIVE APPROVAL FOR THE PROCEDURE. INSTRUCTIONS WERE GIVEN, QUESTIONS WERE ANSWERED, PATIENT REPORTS UNDERSTANDING AND AGREES WITH THE PLAN. I, VALERY GUZMAN, DOCUMENTED THE ABOVE INFORMATION ACTING A SCRIBE FOR DR. STANTON. I HAVE REVIEWED THE ABOVE DOCUMENT, WRITTEN BY VALERY BAIN AND I VERIFY THAT IT IS ACCURATE.. PROCEDURES PN WORKMANS' COMP OPINION IN YOUR OPINION, WAS THE INCIDENT THAT THE PATIENT DESCRIBED THE COMPETENT MEDICAL CAUSE OF THIS INJURY/ILLNESS? YES ARE THE PATIENT'S COMPLAINTS CONSISTENT WITH HIS/HER HISTORY OF THE INJURY/ILLNESS? YES IS THE PATIENT'S HISTORY OF THE INJURY/ILLNESS CONSISTENT WITH YOUR OBJECTIVE FINDING? YES WHAT IS THE PERCENTAGE OF TEMPORARY IMPAIRMENT? MODERATE TO MARKED = 66.7% IS THE PATIENT WORKING? NO DOCTOR ON SITE: ROBERT MELENDEZ MD PROCEDURE CODES FA211 ESTABILISHED PATIENT [facility] CHARGE [id number] CURRENT MEDS W/DOSAGES DOCUMENTED G8730 PAIN ASSESS POS TOOL F/U PLAN DOC DISPOSITION & COMMUNICATION FOLLOW UP 3 WEEKS ELECTRONICALLY SIGNED BY ROBERT STANTON MD, MD ON 03/28/2019 AT 04:26 PM EDT DISCLAIMER : THIS IS A VISIT SUMMARY EXTRACTED FROM THE [employer] CHART. IT IS NOT A COPY OF THE [employer] PROGRESS NOTE. MTDJerson
== END ==
LOC: M PAIN 09:15
PROVIDERS: ATTEND Anesthesiology
DX: M47.816 Spondylosis without myelopathy or radiculopathy, lumbar region (principal); M96.1 Postlaminectomy syndrome, not elsewhere classified; M47.817 Spondylosis without myelopathy or radiculopathy, lumbosacral region; G47.30 Sleep apnea, unspecified; I10 Essential (primary) hypertension; Z98.84 Bariatric surgery status; Z87.891 Personal history of nicotine dependence; Z88.8 Allergy status to other drugs, medicaments and biological substances; E66.01 Morbid (severe) obesity due to excess calories; Z68.41 Body mass index [BMI] 40.0-44.9, adult; Z79.82 Long term (current) use of aspirin; Z79.899 Other long term (current) drug therapy

== ENCOUNTER → 2019-06-08 | Outpatient (REF) | payer MEDICARE ==
[2019-06-08 16:33] LABS: HEMOGLOBIN 14.3 g/dl (13.5-17.5); MEAN CORPUSCULAR HEMOGLOBIN 30.8 pg (27.0-33.0); MEAN CORPUSCULAR HGB CONC 32.5 g/dl (32.0-36.5); MEAN CORPUSCULAR VOLUME 94.6 fl (80.0-96.0); PLATELET COUNT, AUTOMATED 240 10^3/uL (150-450); RED BLOOD COUNT 4.65 10^6/uL (4.30-6.10); WHITE BLOOD COUNT 6.2 10^3/uL (4.0-10.0)
[2019-06-08 16:41] LABS: ALBUMIN 3.9 GM/DL (3.2-5.2); ALT/SGPT 48 U/L (12-78); BILIRUBIN,TOTAL 0.6 MG/DL (0.2-1.0); BLOOD UREA NITROGEN 15 MG/DL (7-18); CALCIUM LEVEL 9.1 MG/DL (8.8-10.2); CARBON DIOXIDE LEVEL 31 MEQ/L (21-32); CHLORIDE LEVEL 105 MEQ/L (98-107); CHOLESTEROL LEVEL 161 MG/DL (<200); CREATININE FOR GFR 0.77 MG/DL (0.70-1.30); FREE T4 0.85 NG/DL (0.76-1.46); GLOMERULAR FILTRATION RATE > 60.0 (>49); GLUCOSE, FASTING 113 MG/DL (70-100); HDL CHOLESTEROL 50 MG/DL (>40); LDL CHOLESTEROL 75 MG/DL (<100); NON-HDL-C 111 MG/DL; POTASSIUM SERUM 4.9 MEQ/L (3.5-5.1); SODIUM LEVEL 141 MEQ/L (136-145); TOTAL PROTEIN 7.2 GM/DL (6.4-8.2); TRIGLYCERIDES LEVEL 181 MG/DL (<150)
== END ==
LOC: M SFHCCLAY 10:21
PROVIDERS: ATTEND Family Medicine
DX: G47.33 Obstructive sleep apnea (adult) (pediatric) (principal); I10 Essential (primary) hypertension; E66.01 Morbid (severe) obesity due to excess calories; G56.03 Carpal tunnel syndrome, bilateral upper limbs

== ENCOUNTER → 2019-06-10 | Outpatient (CLI) | payer OTHER, MEDICARE ==
--- NOTE | 2019-06-15 05:11 | ECWPNPC ---
PATIENT NAME: CYRIL RUFF : 1960 GENDER: MALE VISIT DATE: 06/10/2019 DISCHARGE DATE: 06/10/19937 VISIT LOCKED DATE TIME: PHYSICIAN: SEBLE WIGGINS PHYSICIAN PAGER NO: [phone] RESOURCE: SEBLE WIGGINS REASON FOR APPOINTMENT 1. W/C, 3 MONTHS HISTORY OF PRESENT ILLNESS HISTORY OF PRESENT ILLNESS: PAIN THE PATIENT DESCRIBES THE PAIN... 59 YEAR OLD MALE PATIENT WITH A HISTORY OF CHRONIC LOW BACK PAIN. THE PATIENT DESCRIBES THE PAIN ACHING, BURNING, SHARP,STABBING, SORE, AND SHOOTING MOSTLY DURING THE DAY BUT SOMETIMES AT NIGHT WITH A PAIN SCORE OF 3-4/10 DEPENDING ON PHYSICAL ACTIVITY. HE DOES ADMIT TO EXACERBATIONS OF HIS PAIN WHERE IT SPIKES TO 10+ THE PATIENT STATES HE IS EXPERIENCING NUMBNESS IN HIS RIGHT LEG. 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 PATIENT SAYS HE HAD BACK SURGERY MANY YEARS AGO. HE WOULD LIKE TO DISCUSS AN RF PROCEDURE WITH A GOAL OF INCREASED FUNCITIONALITY AND DECREASED PAIN. FALL RISK SCREENING: SCREENING :NO FALLS REPORTED IN THE LAST YEAR CURRENT MEDICATIONS TAKING LISINOPRIL 20 MG TABLET 1 TABLET ORALLY ONCE A DAY TAKING VITAMIN C 500 MG CAPSULE ORALLY TAKING VITAMIN D TAKING VITAMIN B12 1000 MCG TABLET EXTENDED RELEASE 2 TABLET ORALLY DAILY TAKING CALTRATE 600+D 600-400 MG-UNIT TABLET 1 TABLET WITH FOOD ORALLY DAILY TAKING MULTI VITAMIN DAILY - TABLET 2 TABS ORALLY ONCE A DAY TAKING ASPIR-81 81 MG TABLET DELAYED RELEASE 1 TABLET ORALLY ONCE A DAY MEDICATION LIST REVIEWED AND RECONCILED WITH THE PATIENT PAST MEDICAL HISTORY SLEEP APNEA DEGENERATIVE SPINE HIGH BLOOD PRESSURE OBESITY: HIGH 320 GASTRIC BYPASS 12/2016 ALLERGIES STERIODS FOR INJECTION: ANAPHYLAXIS - ALLERGY SURGICAL HISTORY BACK SURGERY 1999 SHOULDER SURGERY 1988 4 TITANIUM RODS PUT IN BACK-16 BOLTS- AFTER ON THE JOB INJURY. CONTINUES F/U WITH DR. STANTON 2008 4 TEETH PULLED BY ORAL SURGERY 2013FEBRUARY 10 GASTRIC BYPASS 2016 CARPAL TUNNEL LEFT (W/O IMPROVEMENT) 2017 FAMILY HISTORY FATHER: ALIVE 83 YRS, DIABETES, HIGH BLOOD PRESSURE, CHRONIC BRONCHITIS, DIAGNOSED WITH DIABETES, HYPERTENSION MOTHER: ALIVE 80 YRS, HIGH BLOOD PRESSURE,OVARIAN CANCER,BREAST CANCER ,BRAIN TUMOR REMOVED THIS WINTER 2015, UNSPECIFIED CEREBRAL ARTERY OCCLUSION WITH CEREBRAL INFARCTION, OTHER MALIGNANT NEOPLASM OF UNSPECIFIED SITE SOCIAL HISTORY GENERAL: TOBACCO USE ARE YOU A:FORMER SMOKER 06/03/2019 HOW LONG HAS IT BEEN SINCE YOU LAST SMOKED? QUIT 1997 ADDITIONAL FINDINGS: TOBACCO USER NO ADDITIONAL FINDINGS: TOBACCO NON-USERCURRENT NON-SMOKER VAPORNO E-CIGARETTENO HIV / HEP-C SCREENING HIV TEST OFFERED TO PATIENT:YES DATE OFFERED:12/18/2017 TEST ACCEPTED:NO HEP-C TEST OFFERED TO PATIENT:YES DATE OFFERED:12/18/2017 REASON:PATIENT DECLINED TEST ACCEPTED:NO REASON:PATIENT DECLINED BROCHURE PROVIDED TO PATIENTNO OTHERS AT HOME: FATHER, MOTHER. EDUCATION LEVEL OF EDUCATION:COLLEGE DIET: REGULAR. LANGUAGE LANGUAGES SPOKEN:GERMAN DOMESTIC VIOLENCE DO YOU FEEL SAFE IN YOUR ENVIRONMENT?YES BMI CARE GOAL FOLLOW-UP ABOVE NORMAL BMI FOLLOW-UPDIETARY MANAGEMENT EDUCATION, GUIDANCE, AND COUNSELING RECREATIONAL DRUG USE DRUG USE?NO EXERCISE: DAILY, WALKS. LEARNING BARRIERS / SPECIAL NEEDS CHANGE FROM LAST VISIT?NO 06/03/2019 BARRIERS TO LEARNING?NO HEARING IMPAIRED?NO VISION IMPAIRED?YES CHEATERS COGNITIVELY IMPAIRED?NO READINESS TO LEARN?YES LEARNING PREFERENCES?NO LEARNING CAPABILITIES PRESENT?YES EMOTIONAL BARRIERS?NO SPECIAL DEVICES?NO PIGMENT PROCESSOR NEEDED?NO LUNG CANCER SCREENING SMOKING STATUS:FORMER SMOKER IS THE PATIENT BETWEEN THE AGE OF 54 AND 76?YES HAVE YOU QUIT SMOKING WITHIN THE PAST 15 YEARS?YES HAS THE PATIENT EVER BEEN DIAGNOSED WITH LUNG CANCER?NO PAIN CLINIC PFS, CLERGY, PUBLIC HEALTH REFERRALS PFS REFERRAL NEEDED?NO CLERGY REFERRAL NEEDED?NO PUBLIC HEALTH REFERRAL NEEDED?NO WAS THE PROVIDER NOTIFIED OF ANY PERTINENT INFO?YES HAS THE PATIENT BEEN EDUCATED REGARDING HIS/HER PLAN OF CARE?YES HAS THE PATIENT BEEN EDUCATED REGARDING PAIN, THE RISK FOR PAIN, THE IMPORTANCE OF EFFECTIVE PAIN MANAGEMENT, AND THE PAIN ASSESSMENT PROCESS?YES LATEX QUESTIONNAIRE LATEX ALLERGY : HAVE YOU EVER DEVELOPED ANY TYPE OF REACTION AFTER HANDLING LATEX PRODUCTS SUCH RUBBER GLOVES, CONDOMS, DIAPHRAGMS, BALLOONS, SOCKS, OR UNDERWEAR?NO LATEX ALLERGY : HAVE YOU EVER DEVELOPED ANY TYPE OF REACTION DURING OR AFTER DENTAL APPOINTMENT, VAGINAL/RECTAL EXAMINATION, SURGICAL PROCEDURE, OR ANY OTHER EXPOSURE?NO LATEX RISK : HAVE YOU EVER HAD ANY DIFFICULTY BREATHING OR HIVES AFTER EATING OR HANDLING ANY FRUITS, OR VEGETABLES; SUCH KIWI, BANANAS, STONE FRUITS, OR CHESTNUTSNO LATEX RISK : DO YOU HAVE A PREVIOUS PERSONAL HISTORY OF MORE THAN NINE SURGERIES, SPINA BIFIDA, OR REPEATED CATHERIZATIONS? NO LATEX RISK : ARE YOU FREQUENTLY EXPOSED TO LATEX PRODUCTS IN YOUR OCCUPATION?NO DATE ASKED : 06/10/2019 CAFFEINE CAFFEINE USE?YES HOW OFTEN AND HOW MUCH? 6-8 CUPS COFFEE DAILY ADVANCE DIRECTIVE ADVANCE DIRECTIVE DISCUSSED WITH PATIENT:YES HCP - CYRIL JOHNSON (FATHER) & DEYVI (MOTHER) CONGREGATIONAL [id number] YAZDANISM MARITAL STATUS: .. ALCOHOL SCREENING DID YOU HAVE A DRINK CONTAINING ALCOHOL IN THE PAST YEAR?YES HOW OFTEN DID YOU HAVE A DRINK CONTAINING ALCOHOL IN THE PAST YEAR?NEVER (0 POINTS) POINTS0 INTERPRETATIONNEGATIVE OCCUPATION: RETIRED. SEXUAL HX HAD SEX IN THE LAST 12 MONTHS (VAGINAL, ORAL, OR ANAL)?YES WITHWOMEN ONLY USE PROTECTION?YES HOW OFTEN?ALL OF THE TIME HAVE YOU EVER HAD AN STD?NO REVIEWED WITH PATIENT 07/27/18 3032 JS. HOSPITALIZATION/MAJOR DIAGNOSTIC PROCEDURE SURGERY REVIEW OF SYSTEMS REVIEWED BY: PROVIDER: CR MAN . CONSTITUTIONAL: ANY CHANGE IN YOUR MEDICAL CONDITION? NO . CHILLS NO . FEVER NO . INFECTION: DO YOU HAVE NEW INFECTIONS? NO . DO YOU HAVE HISTORY OF MRSA? NO . MUSCULOSKELETAL: ANY NEW PATTERNS OF PAIN OR NUMBNESS? YES . GASTROENTEROLOGY: ANY NEW CHANGE IN BOWEL CONTROL? NO . GENITOURINARY: ANY NEW CHANGE IN BLADDER CONTROL? NO . IS THERE A CHANCE YOU COULD BE ? NO . HEMATOLOGY/LYMPH: DO YOU TAKE ANY BLOOD THINNERS? (FOR EXAMPLE- COUMADIN, PLAVIX, AGGRENOX, PLATEL, PRADAXA, OR XARELTO) NO . WHEN WAS YOUR LAST DOSE? DATE: TIME: . NEUROLOGY: HAVE YOU FALLEN IN THE PAST 12 MONTHS? NO . ANY NEW EXTREMITY NUMBNESS OR WEAKNESS? NO . CARDIOLOGY: DO YOU HAVE A PACEMAKER OR DEFIBRILLATOR? NO . RESPIRATORY: HAVE YOU BEEN SICK IN THE PAST WEEK? NO . FEVER NO . FLU LIKE SYMPTOMS? NO . COUGH NO . INTEGUMENTARY: DO YOU HAVE ANY RASHES OR OPEN SORES? NO . ALLERGIC/IMMUNO: ARE YOU ALLERGIC TO IV DYE? NO . ANY NEW ALLERGIES? YES . PSYCHIATRIC: DO YOU HAVE THOUGHTS OF HURTING YOURSELF OR SOMEONE ELSE? NO . ARE YOU ABUSED, NEGLECTED, OR IN AN UNSAFE ENVIRONMENT? NO . ENDOCRINOLOGY: ARE YOU DIABETIC? NO . OTHER: DO YOU NEED ANY PRESCRIPTIONS? NO . IF YES, PLEASE LIST: ____ . ANY NEW PROBLEMS WITH YOUR MEDICATIONS? NO . WHEN DID YOU LAST EAT? ____ . WHEN DID YOU LAST DRINK? ____ . WHAT DID YOU LAST DRINK? ____ . NAME OF PERSON DRIVING YOU HOME? ____ . DO YOU HAVE ANY OTHER QUESTIONS OR CONCERNS YES, IN AN EMERGENCY SITUATION WHO DO I SEE? . VITAL SIGNS WT 298.6 LBS, HT 70", BMI 42.84 INDEX, BP 143/70 MM HG, HR 76 /MIN, RR 18 /MIN, TEMP 98.1 F, OXYGEN SAT % 95%, SAFE IN ENV? (Y/N) YES, NA INITIALS CO 09:03, REVIEWED BY: ADELAIDA. EXAMINATION GENERAL EXAMINATION: GENERALNO ACUTE DISTRESS, WELL NOURISHED AND HYDRATED. PSYCHAPPROPRIATE MOOD AND AFFECT . LUNGS:CLEAR TO AUSCULTATION BILATERALLY, NO WHEEZES, RHONCHI, RALES. HEART:NO MURMURS, REGULAR RATE AND RHYTHM. BACK:POINT TENDER ALONG LUMBAR SPINE, SURROUNDING SKIN SHOWS NO ERYTHEMA, ECCHYMOSIS, INCREASED WARMTH, AND/OR SKIN ERUPTIONS NOTED. POSITIVE MODIFIED SLR ON THE RIGHT SIDE. . EXTREMITIES:EQUAL STRENGTH OF THE LOWER EXTREMITIES BILATERALLY . ASSESSMENTS POSTLAMINECTOMY SYNDROME, NOT ELSEWHERE CLASSIFIED - M96.1 (PRIMARY) LUMBAR BACK PAIN WITH RADICULOPATHY AFFECTING RIGHT LOWER EXTREMITY - M54.16 TREATMENT POSTLAMINECTOMY SYNDROME, NOT ELSEWHERE CLASSIFIED NOTES: DIAGNOSTIC FACET BLOCK #1 L4-L5 L5-S1. 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 CHRONIC PAIN FOLLOW-UP. GIVEN PRESENTING SYMPTOMS AND RESULTS OF PHYSICAL EXAMINATION RECOMMENDED DIAGNOSTIC FACET BLOCK #1 L4-L5 L5-S1 WITH POSTPROCEDURAL FOLLOW-UP. PATIENT EXPRESSED UNDERSTANDING OF AND WAS IN AGREEMENT WITH TREATMENT PLAN. GIVEN TIME TO ASK QUESTIONS AND EXPRESS CONCERNS. PROCEDURES PN WORKMANS' COMP OPINION IN YOUR OPINION, WAS THE INCIDENT THAT THE PATIENT DESCRIBED THE COMPETENT MEDICAL CAUSE OF THIS INJURY/ILLNESS? YES ARE THE PATIENT'S COMPLAINTS CONSISTENT WITH HIS/HER HISTORY OF THE INJURY/ILLNESS? YES IS THE PATIENT'S HISTORY OF THE INJURY/ILLNESS CONSISTENT WITH YOUR OBJECTIVE FINDING? YES WHAT IS THE PERCENTAGE OF TEMPORARY IMPAIRMENT? MODERATE TO MARKED = 66.7% IS THE PATIENT WORKING? NO DOCTOR ON SITE: ROBERT MELENDEZ MD PREVENTIVE MEDICINE PAIN CLINIC TEACHING: PROCEDURE TEACHING PT GIVEN WRITTEN AND VERBAL EDUCATION ON DIAGNOSTIC FACET BLOCK AND RADIOFREQUNCY. PT ALSO GIVEN PRE PROCEDURE INSTRUCTIONS. PT VERBALIZES UNDERSTANDING OF ALL EDUCATION AND INSTRUCTIONS. ABDIRIZAK MOREL 06/10/2019 9:34:03 AM > . PROCEDURE CODES FA211 ESTABILISHED PATIENT [facility] CHARGE DISPOSITION & COMMUNICATION FOLLOW UP POSTPROCEDURE (REASON: DIAGNOSTIC FACET BLOCK #1 L4-L5 L5-S1) ELECTRONICALLY SIGNED BY MÓNICA CANO ON 06/14/2019 AT 08:32 AM EST DISCLAIMER : THIS IS A VISIT SUMMARY EXTRACTED FROM THE [employer] CHART. IT IS NOT A COPY OF THE [employer] PROGRESS NOTE. STANISLAV
== END ==
LOC: M PAIN 08:45
PROVIDERS: ATTEND Family Medicine
DX: M96.1 Postlaminectomy syndrome, not elsewhere classified (principal); M54.16 Radiculopathy, lumbar region; G47.30 Sleep apnea, unspecified; I10 Essential (primary) hypertension; Z98.84 Bariatric surgery status; Z87.891 Personal history of nicotine dependence; Z88.8 Allergy status to other drugs, medicaments and biological substances; E66.01 Morbid (severe) obesity due to excess calories; Z68.41 Body mass index [BMI] 40.0-44.9, adult; Z79.82 Long term (current) use of aspirin; Z79.899 Other long term (current) drug therapy

== ENCOUNTER 2020-07-03 10:42 | Emergency (ER) | payer BC, MEDICARE, OTHER ==
[~2020-07-03] VITALS: Ht 185.4 cm; Wt 138.8 kg
[~2020-07-03 10:42] MED LIST changes: +CYAN500T14 PO; -CYAN500T8 PO
--- NOTE | 2020-07-03 11:32 | REP ---
INDICATION: CHEST PAIN COMPARISON: None. TECHNIQUE: Portable AP view of the chest FINDINGS: The mediastinum and cardiac silhouette are within normal limits for portable technique. The lung desir are clear without acute consolidation, effusion, or pneumothorax. Skeletal structures are intact. IMPRESSION: No acute cardiopulmonary process appreciated. <Electronically signed by Lionel Price > 07/03/20 1121
[2020-07-03 12:09] LABS: BASO % 0.3 % (0.0-1.0); EOS # 0.1 10^3/uL (0.0-0.5); EOS % 1.5 % (0.0-3.0); HEMATOCRIT 45.3 % (42.0-52.0); HEMOGLOBIN 14.8 g/dl (13.5-17.5); LYMPH # 1.4 10^3/uL (1.5-5.0); LYMPH % 22.8 % (24.0-44.0); MEAN CORPUSCULAR HEMOGLOBIN 30.8 pg (27.0-33.0); MEAN CORPUSCULAR HGB CONC 32.7 g/dl (32.0-36.5); MEAN CORPUSCULAR VOLUME 94.2 fl (80.0-96.0); MONO # 0.5 10^3/uL (0.0-0.8); MONO % 8.1 % (0.0-5.0); NEUTROPHILS # 4.1 10^3/uL (1.5-8.5); PLATELET COUNT, AUTOMATED 222 10^3/uL (150-450); RED BLOOD COUNT 4.81 10^6/uL (4.30-6.10); WHITE BLOOD COUNT 6.1 10^3/uL (4.0-10.0)
[2020-07-03] MEDS ORDERED: ASPIRIN 81 MG CHEW TABLET PO ONE (12:30)
[2020-07-03 12:42] LABS: ALBUMIN 4.2 GM/DL (3.2-5.2); ALT/SGPT 48 U/L (12-78); BILIRUBIN,DIRECT 0.2 MG/DL (0.0-0.2); BILIRUBIN,TOTAL 0.5 MG/DL (0.2-1.0); BLOOD UREA NITROGEN 14 MG/DL (7-18); CALCIUM LEVEL 9.1 MG/DL (8.8-10.2); CARBON DIOXIDE LEVEL 30 MEQ/L (21-32); CHLORIDE LEVEL 102 MEQ/L (98-107); CREATININE FOR GFR 0.82 MG/DL (0.70-1.30); GLOMERULAR FILTRATION RATE > 60.0 (>49); GLUCOSE, FASTING 108 MG/DL (70-100); LIPASE 216 U/L (73-393); POTASSIUM SERUM 4.4 MEQ/L (3.5-5.1); SODIUM LEVEL 139 MEQ/L (136-145); TOTAL PROTEIN 7.1 GM/DL (6.4-8.2)
[2020-07-03] MEDS ORDERED: GI COCKTAIL 50ML BTL(HYOSCYAMINE/MAALOX/LIDOCAINE VISCOUS)(1:3:1) PO ONE (12:45)
[2020-07-03] MEDS ORDERED: ISOVUE-370 76% 100ML VIAL As Ordered ONE (12:53)
--- NOTE | 2020-07-03 13:11 | REP ---
INDICATION: chest pain COMPARISON: None. TECHNIQUE: Axial contrast enhanced images from the thoracic inlet to the upper abdomen using pulmonary embolus technique with multiplanar re-formations. 75 ml Isovue 370 intravenous contrast material administered without complication. This CT examination was performed using the following dose reduction techniques: Automated exposure control, adjustment of mA and/or kv according to the patient's size, and use of iterative reconstruction technique. FINDINGS: Satisfactory enhancement of the pulmonary vasculature is achieved and no filling defects are identified to suggest pulmonary embolus. Further evaluation of the mediastinum demonstrates normal thoracic aorta, heart and pericardium. The bilateral lung dseir are well aerated and without consolidation pleural effusion or pneumothorax. Tracheobronchial tree is patent. There is an 8 mm nodule in the apical segment right lower lobe (series 402; image 37). No adenopathy noted. Surrounding musculoskeletal structures intact IMPRESSION: 1. No evidence for pulmonary embolus. 2. No acute mediastinal or pleural parenchymal process. 3. 8 mm pulmonary nodule in the apical right lower lobe. No prior examinations are available for comparison and short-term follow-up at 3-6 months may be warranted for further investigation. <Electronically signed by Lionel Price > 07/03/20 [id number]
[2020-07-03 15:14] LABS: CK-MB VALUE MASS 1.8 NG/ML (<3.6); CPK CREATINE PHOSPHOKINASE 90 U/L (39-308); TROPONIN I < 0.02 NG/ML (< 0.10)
[2020-07-03 15:59] LABS: RSV AMPLIFICATION NEGATIVE (NEGATIVE)
[2020-07-03 18:40] VITALS: BP 164/87
--- NOTE | 2020-07-04 08:49 | ECGEPIP ---
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
--- NOTE | 2020-07-04 08:51 | ECGEPIP ---
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
--- NOTE | 2020-07-04 19:31 | ECGEPIP ---
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
== END 2020-07-03 18:48 | disposition home or self-care (01) ==
LOC: M ED 10:42
DX: R07.9 Chest pain, unspecified (principal); R00.1 Bradycardia, unspecified; R91.1 Solitary pulmonary nodule; R06.02 Shortness of breath; I10 Essential (primary) hypertension; G47.33 Obstructive sleep apnea (adult) (pediatric); Z98.84 Bariatric surgery status; Z79.82 Long term (current) use of aspirin; Z79.899 Other long term (current) drug therapy; Z88.8 Allergy status to other drugs, medicaments and biological substances
CPT/HCPCS: 71045; 71275; 80047; 80048; 80076; 82550; 82553; 83690; 84484; 85025; 87631; 93005; 93041; 94760; 99285; Q9967

== ENCOUNTER → 2020-07-28 | Outpatient (CLI) | payer MEDICARE ==
[~2020-07-28] MED LIST changes: +E-Z-HD 98% w/w 340GM SUSP BTL As Ordered ONE; +E-Z-PAQUE 96% w/w SUSP 176GM BTL As Ordered ONE; -LISI-538 PO; +LISI20TA33 PO
--- NOTE | 2020-07-28 17:17 | REP ---
INDICATION: BARIATRIC SURGERY STATUS. COMPARISON: None. TECHNIQUE: The procedure was performed under the direct supervision of Dr. Baldwin. The images were reviewed with Dr. Baldwin. Liquid barium was administered in the erect and prone oblique positions in order to perform a single contrast esophagram and upper GI examination. FINDINGS: A single view PA chest x-ray submitted as a staff occupational therapist film. The superior mediastinal structures are midline. The heart size is within normal limits. The lungs are clear. Abdominal staff occupational therapist film shows normal organomegaly or pathological mass is. The intestinal gas pattern is nonspecific. There are bilateral pedicle screws seen from L3 through S1 levels. During the oral and pharyngeal stages of deglutition there is laryngeal penetration. During esophageal transporter tertiary waves demonstrated. There is no esophagitis or stricture or mucosal ring. There is a sliding-type hiatal hernia. Gastroesophageal reflux is demonstrated to the level of the grace. There are postsurgical changes of the stomach consistent with the patient's history of Juanito-en-Y gastric bypass. Contrast passes through the stomach pouch and anastomosis without delay. There is no evidence of stricture or obstruction. There is no evidence of gastritis neoplasm or ulcer disease. The visualized portion of the proximal small bowel appears normal in course and caliber. 1 minutes of fluoroscopy time was utilized for this procedure. IMPRESSION: 1. There is laryngeal penetration. 2. There is a sliding-type hiatal hernia. There is gastroesophageal reflux demonstrated to the level of the grace. 3. Tertiary waves. <Electronically signed by Carl Elias > 07/28/20 5822 <Electronically signed by Marcus Baldwin > 07/28/20 0470
== END ==
LOC: M RAD 07:31
PROVIDERS: ATTEND Family Medicine
DX: K44.9 Diaphragmatic hernia without obstruction or gangrene (principal); R10.10 Upper abdominal pain, unspecified; Z98.84 Bariatric surgery status

== ENCOUNTER → 2020-10-11 | Outpatient (REF) | payer MEDICARE ==
[~2020-10-11] MED LIST changes: -E-Z-HD 98% w/w 340GM SUSP BTL As Ordered ONE; -E-Z-PAQUE 96% w/w SUSP 176GM BTL As Ordered ONE
[2020-10-11 13:13] LABS: BASO # 0.1 10^3/uL (0.0-0.2); BASO % 0.8 % (0.0-1.0); EOS # 0.1 10^3/uL (0.0-0.5); EOS % 2.2 % (0.0-3.0); HEMATOCRIT 45.4 % (42.0-52.0); HEMOGLOBIN 14.7 g/dl (13.5-17.5); LYMPH # 1.9 10^3/uL (1.5-5.0); LYMPH % 29.9 % (24.0-44.0); MEAN CORPUSCULAR HGB CONC 32.4 g/dl (32.0-36.5); MEAN CORPUSCULAR VOLUME 95.8 fl (80.0-96.0); MONO # 0.7 10^3/uL (0.0-0.8); MONO % 11.8 % (2.0-8.0); NEUTROPHILS # 3.4 10^3/uL (1.5-8.5); NEUTROPHILS % 54.8 % (36.0-66.0); PLATELET COUNT, AUTOMATED 254 10^3/uL (150-450); RED BLOOD COUNT 4.74 10^6/uL (4.30-6.10); WHITE BLOOD COUNT 6.3 10^3/uL (4.0-10.0)
[2020-10-11 14:10] LABS: ALT/SGPT 53 U/L (12-78); BILIRUBIN,TOTAL 0.6 MG/DL (0.2-1.0); BLOOD UREA NITROGEN 14 MG/DL (7-18); CALCIUM LEVEL 9.7 MG/DL (8.8-10.2); CARBON DIOXIDE LEVEL 31 MEQ/L (21-32); CHLORIDE LEVEL 99 MEQ/L (98-107); CHOLESTEROL LEVEL 168 MG/DL (<200); CREATININE FOR GFR 0.84 MG/DL (0.70-1.30); FREE T4 0.96 NG/DL (0.76-1.46); GLOMERULAR FILTRATION RATE > 60.0 (>49); GLUCOSE, FASTING 102 MG/DL (70-100); HDL CHOLESTEROL 42 MG/DL (>40); LDL CHOLESTEROL 84 MG/DL (<100); NON-HDL-C 126 MG/DL; POTASSIUM SERUM 5.1 MEQ/L (3.5-5.1); SODIUM LEVEL 137 MEQ/L (136-145); TOTAL PROTEIN 7.3 GM/DL (6.4-8.2); TRIGLYCERIDES LEVEL 212 MG/DL (<150)
== END ==
LOC: M SFHCCLAY 07:57
PROVIDERS: ATTEND Family Medicine
DX: E78.5 Hyperlipidemia, unspecified (principal); I10 Essential (primary) hypertension

== ENCOUNTER 2023-04-08 09:36 | Day surgery (SDC) | payer MEDICARE ==
[~2023-04-08] VITALS: Ht 185.4 cm; Wt 139.3 kg
[~2023-04-08 09:36] MED LIST changes: +NS 1,000 ML IV ONE; +OMEP1CAP71 PO
[2023-04-08] MEDS ORDERED: propofoL 200 MG/20 ML VIAL As Ordered ONE ×2 (09:47→12:27)
[2023-04-08] MEDS ORDERED: LIDOCAINE 2% 100MG/5ML SDV (FOR ANES.) As Ordered ONE (09:47)
[2023-04-08] MEDS ORDERED: GLYCOPYRROLATE INJ 0.2 MG/ML 2 ML VIAL As Ordered ONE (12:24)
[2023-04-08 13:34] VITALS: BP 167/75; TEMP 97.9; O2SAT 98
== END 2023-04-08 13:35 | disposition home or self-care (01) ==
LOC: M OPP 09:36
PROVIDERS: ATTEND Internal Medicine Gastroenterology
DX: Z86.010 Personal history of colon polyps (principal); D12.2 Benign neoplasm of ascending colon; D12.3 Benign neoplasm of transverse colon; K64.8 Other hemorrhoids; G47.30 Sleep apnea, unspecified; Z99.89 Dependence on other enabling machines and devices; Z87.891 Personal history of nicotine dependence; Z79.82 Long term (current) use of aspirin; Z79.83 Long term (current) use of bisphosphonates; Z79.899 Other long term (current) drug therapy; Z88.8 Allergy status to other drugs, medicaments and biological substances

== ENCOUNTER → 2024-07-26 | Outpatient (REF) | payer MEDICARE ==
[~2024-07-26] MED LIST changes: -NS 1,000 ML IV ONE
[2024-07-26 17:21] LABS: IRON (FE) 110 UG/DL (65-175)
[2024-07-26 17:22] LABS: ALBUMIN 3.7 G/DL (3.2-5.2); ALKALINE PHOSPHATASE 77 U/L (40-129); ALT/SGPT 34 U/L (7.0-40); AST/SGOT 24 U/L (<34); BILIRUBIN,TOTAL 0.4 MG/DL (0.3-1.2); BLOOD UREA NITROGEN 12 MG/DL (9-23); CALCIUM LEVEL 8.3 MG/DL (8.3-10.6); CARBON DIOXIDE LEVEL 28 MMOL/L (20-31); CHLORIDE LEVEL 104 MMOL/L (98-107); CHOLESTEROL LEVEL 160 MG/DL (<200); CHOLESTEROL RISK RATIO 2.69 (<5); CREATININE FOR GFR 0.59 MG/DL (0.70-1.30); GLOMERULAR FILTRATION RATE > 60.0 (>49); GLUCOSE, FASTING 104 MG/DL (74-106); HDL CHOLESTEROL 59.4 MG/DL (>40); LDL CHOLESTEROL 67.6 MG/DL (<100); NON-HDL-C 100.6 MG/DL; PERCENT SATURATION 27.2 % (19.7-50.0); POTASSIUM SERUM 4.4 MMOL/L (3.5-5.1); PSA SCREENING 0.37 NG/ML (< 4.00); SODIUM LEVEL 141 MMOL/L (136-145); TOTAL IRON BINDING CAPACITY 404 UG/DL (250-425); TOTAL PROTEIN 6.9 G/DL (5.7-8.2); TRIGLYCERIDES LEVEL 165 MG/DL (<150)
[2024-07-26 17:25] LABS: FERRITIN 21.6 NG/ML (10.5-307.3)
[2024-07-26 17:26] LABS: FOLATE 23.3 NG/ML (>5.4); TOTAL 25(OH) VITAMIN D 28.5 NG/ML (20.0-100.0); VITAMIN B12 LEVEL 276 PG/ML (211-911)
[2024-07-26 17:28] LABS: BASO % 0.6 % (0.0-1.0); EOS # 0.1 10^3/uL (0.0-0.5); EOS % 1.5 % (0.0-3.0); HEMATOCRIT 42.8 % (42.0-52.0); LYMPH # 1.3 10^3/uL (1.5-5.0); LYMPH % 24.7 % (24.0-44.0); MEAN CORPUSCULAR HEMOGLOBIN 31.7 pg (27.0-33.0); MEAN CORPUSCULAR HGB CONC 32.7 g/dl (32.0-36.5); MEAN CORPUSCULAR VOLUME 97.1 fl (80.0-96.0); MONO # 0.5 10^3/uL (0.0-0.8); MONO % 8.5 % (2.0-8.0); NEUTROPHILS # 3.4 10^3/uL (1.5-8.5); NEUTROPHILS % 64.1 % (36.0-66.0); PLATELET COUNT, AUTOMATED 217 10^3/uL (150-450); RED BLOOD COUNT 4.41 10^6/uL (4.30-6.10); WHITE BLOOD COUNT 5.3 10^3/uL (4.0-10.0)
[2024-07-26 17:44] LABS: HEMOGLOBIN A1c 6.1 % (4.0-6.0)
== END ==
LOC: M SFHCCAPE 10:08
PROVIDERS: ATTEND Physician Assistant Medical
DX: K21.9 Gastro-esophageal reflux disease without esophagitis (principal); Z98.84 Bariatric surgery status; I10 Essential (primary) hypertension; Z13.1 Encounter for screening for diabetes mellitus; E78.5 Hyperlipidemia, unspecified; Z12.5 Encounter for screening for malignant neoplasm of prostate; Z79.899 Other long term (current) drug therapy
CPT/HCPCS: 80053; 80061; 82306; 82607; 82728; 82746; 83036; 83550; 85025; G0103

== ENCOUNTER → 2025-03-18 | Outpatient (CLI) | payer MEDICARE | LOC: M PLAIMG 12:56 | PROVIDERS: ATTEND Physician Assistant Medical | DX: R05.3 Chronic cough (principal); J84.10 Pulmonary fibrosis, unspecified ==